=== PATIENT | female | born 1965 | race Caucasian/White ===

== ENCOUNTER → 2017-09-13 08:18 | Outpatient (CLI) | payer OTHER, SELFPAY ==
--- NOTE | 2017-09-13 08:30 | CT_ITS ---
STUDY: CT CHEST WITH CONTRAST REASON FOR EXAM: Female, 52 years old. New diagnosis of ovarian carcinoma. Left abdominal pain. RADIATION DOSAGE (If Supplied By Facility): CTDIvol = ( 13.23 ) mGy, DLP = ( 529.28 ) mGycm TECHNIQUE: Transaxial imaging was performed following intravenous administration of 100 ml of Isovue 300 contrast material. Multiplanar coronal and sagittal images were reformatted. Individualized dose optimization techniques were used for this CT. COMPARISON: None. FINDINGS: Small bilateral axillary lymph nodes. Mild degree of increased markings with areas of confluence in the anterior aspect of the right upper lobe. Reticular nodular densities are seen in the posterior aspect of the right upper lobe. There is a 7.6 mm x 8 mm well-defined nodule in the peripheral aspect of the right upper lobe as seen on image #73. Small right pleural effusion with bibasilar atelectasis. Sternal cerclage wires and vascular clips are present from a prior sternotomy and coronary artery bypass graft procedure (CABG). Prior aortic valve replacement. Coronary artery calcification. Enlarged subcarinal lymph nodes. Small bilateral hilar lymph nodes more prominent on the right side. The largest node measures 1.4 cm. Normal hilar regions. Normal enhanced pulmonary arteries. There is atherosclerotic calcification of the aortic arch . There are multi-level degenerative changes of the thoracic spine. There is no demonstrated abnormality of the visualized upper abdomen. CT/Chest WITH Contrast IMPRESSION: Small right pleural effusion with bibasilar atelectasis. 7.6 mm x 8 mm noncalcified nodule in the peripheral aspect of the right upper lobe. Reticular nodular infiltrate in the right upper lobe. Enlargement of both right and left hilar lymph nodes more prominent on the right side as well as subcarinal lymphadenopathy. Electronically Signed: Sesar Arcos MD at 13:42 EST Tel [phone], Service support ,
--- NOTE | 2017-09-13 08:30 | CT_ITS ---
STUDY: CT ABDOMEN AND PELVIS WITH CONTRAST REASON FOR EXAM: Female, 52 years old. Newly diagnosed ovarian cancer. Left abdominal pain for several months. Patient on several toe. RADIATION DOSAGE (If Supplied By Facility): CTDIvol = ( 13.23 ) mGy, DLP = ( 529.28 ) mGycm TECHNIQUE: Transaxial images were obtained from the dome of the diaphragm to the symphysis pubis without oral contrast. 100 ml of Isovue 300 contrast was administered. Sagittal and coronal images were reconstructed. Individualized dose optimization techniques were used for this CT. COMPARISON: None. FINDINGS: Lung bases are clear. There is a small right pleural effusion. Heart is normal size. There is evidence of median sternotomy. There is a Satya's lobe of the liver. The liver is otherwise normal in density and configuration. There is a 3 mL mm hypodensity in the posterior mid liver thought to represent a small cyst Normal gallbladder and extrahepatic biliary system. Normal spleen. Normal pancreas. A normal right adrenal gland. There is a heterogenous slightly enhancing mass in the left adrenal gland measuring 1.7 x 1.7 x 1.9 cm. Normal right kidney. Normal left kidney. Normal visualized stomach. Normal small intestine. Normal colon. The appendix is visualized and appears normal. There is diffuse atherosclerotic calcification of the abdominal aorta, without a demonstrated aneurysm. Normal inferior vena cava. There is extensive retroperitoneal and retrocrural lymphadenopathy. There are multiple retrocrural lymph nodes. The largest measures 1.4 x 1.3 x 2 cm. There is a large retroperitoneal lymph nodes, some appear necrotic. These extend outward along the celiac access into the portal hilum. There is a large portal caval nodes retrocaval lymphadenopathy and periaortic lymphadenopathy. There is a large necrotic node posterior to the pancreatic head measuring 3.6 x 2.1 x 4.1 cm in size. There is a larger necrotic mass posterior to this node which extends into the aorto caval space measuring 5.9 x 3.1 x 4.4 cm in size. Lymphadenopathy extends downwards along the retroperitoneum into the pelvis. There is a 2.3 x 2.1 x 2.1 cm partially necrotic lymph node between the left common iliac vessels and the left psoas muscle. This is best seen on image 66 of series 3. Normal urinary bladder. There is mild thickening of the vaginal vault with enhancement along the region of cough. There appears to be small bowel loops adjacent to the cough which may be adhesed. There is diffuse stranding of the pelvic soft tissues with thickening of the presacral soft tissues. There is no visualized pelvic lymphadenopathy. There are surgical clips along the left pelvic sidewall. No free air or free fluid is seen within the peritoneal cavity. The midline subumbilical surgical scar. The abdominal wall is otherwise unremarkable. There are mild degenerative changes of the lumbar spine. Normal osseous structures. CT/Abdomen/Pelvis WITH Contrast IMPRESSION: 1. Status post hysterectomy. There is questionable enhancement of the vaginal cuff with adjacent small bowel loops. Question adhesion or recurrence. 2. Diffuse stranding of the soft tissues of the pelvis. This may be secondary to radiation therapy. Correlation with surgical history is required. 3. Diffuse retroperitoneal and retrocrural lymphadenopathy as described above. 4. Hypodensity in the liver. This most likely represents a small cyst although a low-attenuation metastasis cannot be ruled out in light of the clinical history. 5. Small right pleural effusion. Electronically Signed: Josesito Sales DO at 10:12 EST Tel [phone], Service support ,
== END ==
PROVIDERS: Visit Provider Internal Medicine Hematology & Oncology
DX: C56.9 Malignant neoplasm of unspecified ovary (principal)
CPT/HCPCS: 71260; 74177; Q9967

== ENCOUNTER 2017-09-19 07:54 | Day surgery (SDC) | payer OTHER, SELFPAY ==
[2017-09-19] VITALS (8 sets, daily range): BP systolic 84–104; BP diastolic 51–64; PULSE 68–86; RESP 16; TEMP 36.6–36.8; O2SAT 94–100; BMI 20.9
[2017-09-19 09:09] LABS: International Normalized Ratio 1.3; Prothrombin Time (Protime)PT. 15.8 SECONDS (11.7-14.9)
[2017-09-19 09:10] LABS: Partial Thromboplast Time 45.8 Seconds (24.1-36.2)
[2017-09-19 09:12] LABS: Absolute Lymphocyte Count 0.88 X10^3/ul (0.83-4.51); Absolute Neutrophil Count 4.4 X10^3/uL (2.0-7.7); Basophil# 0.06 X10^3/uL; Basophil% 0.9 % (0-1); Eosinophil# 0.38 X10^3/uL; Eosinophils% 5.9 % (0-5); Hematocrit 28.4 % (37-47); Hemoglobin 8.5 g/dl (12.0-15.0); Lymphocyte # 0.88 X10^3/ul (4.0); Lymphocyte % 13.7 % (19-41); Mean Corp Hgb Conc 29.9 g/gl (32-36); Mean Corpuscular Hgb 22.5 pg (27.0-32.0); Mean Corpuscular Volume 75.1 fL (81-99); Mean Platelet Vol. 8.6 fl (6.2-12.0); Monocyte# 0.65 X10^3/uL; Monocyte% 10.1 % (0-10); Neutrophil # 4.42 X10^3/uL (2.7-7.7); Neutrophil % 68.8 % (47-70); POSITIVE COUNT NO; POSITIVE DIFFERENTIAL NO; POSITIVE MORPHOLOGY NO; Platelet Count 386 K/mm3 (150-450); RBC Distribution Width CV 15.2 % (11.6-14.6); RBC Distribution Width SD 41.3 fl (35.1-43.9); Red Blood Count 3.78 M/mm3 (4.2-5.4); White Blood Count 6.4 K/mm3 (4.4-11.0)
[2017-09-19] MEDS: Cefazolin 2 GM in 0.9% Normal Saline 100 ML IV (09:35)
[2017-09-19] MEDS: Bupivacaine Mpf 0.5% 30 ML VIAL (09:53)
--- NOTE | 2017-09-19 10:25 | PCM.OPRPT ---
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 Insertion of left IJ Port-A-Cath. 2. Use of ultrasound. 3. Use of fluoroscopy Type of Anesthesia:: MAC Anesthesiologist: Derek Marcelo Special Medications: Ancef 2 g IV ?1 Specimen's removed: none Estimated Blood Loss (mL): <10 cc Fluids Replaced: 750 cc Description of Procedure: After informed consent was given, the patient was brought to the operating room and placed in the supine position. Appropriate time out protocol was followed. He was then given IV conscious sedation for anesthesia. The patient's left upper chest and neck were then prepped with a surgical skin preparation and sterile surgical drapes were placed. After proper landmarks were ascertained, the skin at the upper left chest area was then infiltrated with 1:1 mixture of 1% lidocaine with epinephrine and 0.5% maricaine. A needle trocar was then inserted into the left internal jugular vein with ultrasound guidance-multiple vessels were viewed with u/s and the left IJ was chosen-- and there was good aspiration of venous blood. A wire was then threaded into the needle trocar and this was visualized under fluoroscopy to ensure that the wire was in the superior vena cava. Once this was done, then the needle trocar was removed. A small skin luana was made with an 11 blade knife at the wire entrance site. The dilator with the introducer sheath attached was then placed over the wire into the left internal jugular vein via the Seldinger technique and this was visualized under fluoroscopy. The dilator and sheath were in proper position as visualized by fluoroscopy. A subcutaneous pocket was then created caudad to the catheter insertion site. A transverse skin incision was made after the skin and subcutaneous tissues were infiltrated with local anesthetic. Blunt dissection was then used to create a space large enough for placement of the subcutaneous port. The catheter was then tunneled into the subcutaneous pocket. The wire and dilator were then removed. The catheter was then threaded into the introducer sheath and was positioned with its tip at the junction of the superior vena cava and the right atrium as visualized under fluoroscopy. The excess catheter was transected. The catheter was then attached to the subcutaneous port using manufacturers guidelines. The catheter was flushed with a heparin saline mixture prior to placement. Hemostasis was carefully controlled with electrocautery. The port was sutured to the subcutaneous fascia using 3-0 PDS suture at two sites. The port was then placed in the subcutaneous pocket and the sutures were ligated. The incision were reapproximated with interrupted subdermal 3-0 vicryl sutures. The skin was reapproximated with 3-0 nylon suture in a interrupted fashion. Steristrips were used for reinforcement of the skin closure at IJ insertion site and a sterile opsite dressings were applied. The patient tolerated the procedure well. Implants Used: [employer] isp M[employer]. 6Fr Lot [id number] Grafts/Implants Used: [employer] isp M.R.I. - Complications none
--- NOTE | 2017-09-19 10:29 | OP.PCM_ITS ---
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 Insertion of left IJ Port-A-Cath. 2. Use of ultrasound. 3. Use of fluoroscopy Type of Anesthesia:: MAC Anesthesiologist: Derek Marcelo Special Medications: Ancef 2 g IV ?1 Specimen's removed: none Estimated Blood Loss (mL): <10 cc Fluids Replaced: 750 cc Description of Procedure: After informed consent was given, the patient was brought to the operating room and placed in the supine position. Appropriate time out protocol was followed. He was then given IV conscious sedation for anesthesia. The patient 's left upper chest and neck were then prepped with a surgical skin preparation and sterile surgical drapes were placed. After proper landmarks were ascertained, the skin at the upper left chest area was then infiltrated with 1: 1 mixture of 1% lidocaine with epinephrine and 0.5% maricaine. A needle trocar was then inserted into the left internal jugular vein with ultrasound guidance-multiple vessels were viewed with u/s and the left IJ was chosen-- and there was good aspiration of venous blood. A wire was then threaded into the needle trocar and this was visualized under fluoroscopy to ensure that the wire was in the superior vena cava. Once this was done, then the needle trocar was removed. A small skin luana was made with an 11 blade knife at the wire entrance site. The dilator with the introducer sheath attached was then placed over the wire into the left internal jugular vein via the Seldinger technique and this was visualized under fluoroscopy. The dilator and sheath were in proper position as visualized by fluoroscopy. A subcutaneous pocket was then created caudad to the catheter insertion site. A transverse skin incision was made after the skin and subcutaneous tissues were infiltrated with local anesthetic. Blunt dissection was then used to create a space large enough for placement of the subcutaneous port. The catheter was then tunneled into the subcutaneous pocket. The wire and dilator were then removed. The catheter was then threaded into the introducer sheath and was positioned with its tip at the junction of the superior vena cava and the right atrium as visualized under fluoroscopy. The excess catheter was transected. The catheter was then attached to the subcutaneous port using manufacturers guidelines. The catheter was flushed with a heparin saline mixture prior to placement. Hemostasis was carefully controlled with electrocautery. The port was sutured to the subcutaneous fascia using 3-0 PDS suture at two sites. The port was then placed in the subcutaneous pocket and the sutures were ligated. The incision were reapproximated with interrupted subdermal 3-0 vicryl sutures. The skin was reapproximated with 3-0 nylon suture in a interrupted fashion. Steristrips were used for reinforcement of the skin closure at IJ insertion site and a sterile opsite dressings were applied. The patient tolerated the procedure well. Implants Used: [employer] isp M[employer]. 6Fr Lot [id number] Grafts/Implants Used: [employer] isp M.R.I. - Complications none
--- NOTE | 2017-09-19 10:30 | PCM.DC.POR ---
Discharge Diet: No Restrictions Discharge Activity: May not drive while taking narcotic pain medications. May shower in (days): 1 - Garcias port site dry for 5 days, uses Ziploc bag and tape off the edges Lifting Restrictions: No lifting greater than 15 pounds on the left for 1 week Call your doctor if your incision/area has: Continuous Slow Oozing, Sudden Increased Bleeding, Increased Pain/ Swelling, Increased Redness, Foul Smelling Discharge, Swelling at the incision site Call your doctor if you observe: Fever of 101 or Higher Remove Dressing in (days):: 2 Allergies/Adverse Reactions: Allergies sulfamethoxazole [From Bactrim] Adverse Reaction (Severe, Verified 09/18/17 13:53) Other JOHN[employer]S SYN[employer]ONE trimethoprim [From Bactrim] Adverse Reaction (Severe, Verified 09/18/17 13:53) Other [employer] Medications to take at Discharge Acetaminophen [Tylenol] 500 mg PO TID PRN 09/09/17 Metoprolol(XL)Succ [Toprol Xl (Beta Buzz)] 25 mg PO DAILY 09/09/17 Docusate Sodium [Dok] 100 mg PO DAILY PRN 09/10/17 Ondansetron HCl [Zofran] 4 mg PO UD PRN 09/10/17 Rivaroxaban [Xarelto] 15 mg PO BID 09/10/17 Rosuvastatin Calcium [Crestor] 40 mg PO DAILY 09/10/17 Oxycodone [Oxyir] 5 - 10 mg PO Q6H PRN PRN 2 Days #10 tablet 09/19/17 The following prescriptions were given: Oxycodone [Oxyir] 5 - 10 mg PO Q6H PRN PRN 2 Days #10 tablet PRN Reason: Pain Primary Care Physician: Care Physician,No Primary [Primary Care Provider] - Please Follow Up With: Jazmyne Dupont MD - after 5PM/weekend call [phone] with any concerns When: call office tomorrow for f/u in 10 days for suture removal Proposed Discharge Date: 09/19/17
--- NOTE | 2017-09-19 10:34 | DCINST_ITS ---
Discharge Diet: No Restrictions Discharge Activity: May not drive while taking narcotic pain medications. May shower in (days): 1 - Garcias port site dry for 5 days, uses Ziploc bag and tape off the edges Lifting Restrictions: No lifting greater than 15 pounds on the left for 1 week Call your doctor if your incision/area has: Continuous Slow Oozing, Sudden Increased Bleeding, Increased Pain/ Swelling, Increased Redness, Foul Smelling Discharge, Swelling at the incision site Call your doctor if you observe: Fever of 101 or Higher Remove Dressing in (days):: 2 Allergies/Adverse Reactions: Allergies sulfamethoxazole [From Bactrim] Adverse Reaction (Severe, Verified 09/18/17 13: 53) Other JOHN[employer] SYN[employer]ONE trimethoprim [From Bactrim] Adverse Reaction (Severe, Verified 09/18/17 13:53) Other [employer] Medications to take at Discharge Acetaminophen [Tylenol] 500 mg PO TID PRN 09/09/17 Metoprolol(XL)Succ [Toprol Xl (Beta Buzz)] 25 mg PO DAILY 09/09/17 Docusate Sodium [Dok] 100 mg PO DAILY PRN 09/10/17 Ondansetron HCl [Zofran] 4 mg PO UD PRN 09/10/17 Rivaroxaban [Xarelto] 15 mg PO BID 09/10/17 Rosuvastatin Calcium [Crestor] 40 mg PO DAILY 09/10/17 Oxycodone [Oxyir] 5 - 10 mg PO Q6H PRN PRN 2 Days #10 tablet 09/19/17 The following prescriptions were given: Oxycodone [Oxyir] 5 - 10 mg PO Q6H PRN PRN 2 Days #10 tablet PRN Reason: Pain Primary Care Physician: Care Physician,No Primary [Primary Care Provider] - Please Follow Up With: Jazmyne Dupont MD - after 5PM/weekend call [phone] with any concerns When: call office tomorrow for f/u in 10 days for suture removal Proposed Discharge Date: 09/19/17
--- NOTE | 2017-09-19 11:20 | RAD_ITS ---
STUDY: X-RAY CHEST REASON FOR EXAM: Female, 52 years old. Port placement verification. TECHNIQUE: Single frontal view of the chest. COMPARISON: None. FINDINGS: A left internal jugular catheter has been placed with the tip projected into the mid-SVC. No complications are noted. The lungs are mildly hyperexpanded. There is blunting of the right costophrenic angle representing scarring or a small effusion. There is borderline cardiomegaly with sternotomy wires and changes of valve replacement. Normal mediastinum and vannessa. Normal visualized pulmonary arteries. Normal visualized aortic arch and descending thoracic aorta. Normal visualized thoracic spine. Normal visualized ribs, clavicles, and shoulders. There is no demonstrated abnormality of the visualized soft tissue structures of the upper abdomen. RAD/CXR for Line Placement IMPRESSION: Borderline cardiomegaly with mild hyperexpansion. Left subclavian port placed as described. No complications noted. Electronically Signed: Luis Mancini MD at 11:02 EST , Service support ,
== END 2017-09-19 12:19 | disposition home or self-care (01) ==
LOC: SDC 07:55 → AC 07:56
PROVIDERS: Anesthesiology; Visit Provider Surgery
PROC: (CPT 36561; principal; 2017-09-19 09:15)
DX: Z45.2 Encounter for adjustment and management of vascular access device (principal); C56.1 Malignant neoplasm of right ovary; C78.6 Secondary malignant neoplasm of retroperitoneum and peritoneum; C77.9 Secondary and unspecified malignant neoplasm of lymph node, unspecified; D64.9 Anemia, unspecified; E78.00 Pure hypercholesterolemia, unspecified; L40.9 Psoriasis, unspecified; Z79.01 Long term (current) use of anticoagulants; Z79.899 Other long term (current) drug therapy; Z86.718 Personal history of other venous thrombosis and embolism; Z87.891 Personal history of nicotine dependence; Z95.2 Presence of prosthetic heart valve; Z90.710 Acquired absence of both cervix and uterus
CPT/HCPCS: 36561; 76937; 71045; 77001; 85025; 85610; 85730; J7120; C1788

== ENCOUNTER → 2017-10-04 08:57 | Outpatient (CLI) | payer OTHER, SELFPAY ==
--- NOTE | 2017-10-04 09:01 | RAD_ITS ---
STUDY: X-RAY - LUMBAR SPINE REASON FOR EXAM: Female, 52 years old. Bilateral hip pain. TECHNIQUE: AP and lateral view(s) of the lumbar spine were obtained. COMPARISON: None FINDINGS: There is straightening of the normal lumbar lordosis. There is no substantial scoliosis. There is a normal alignment of the vertebrae. Mild anterior spondylosis at the L1-L2 level. Normal disc space heights. There is atherosclerotic calcification of the abdominal aorta without a demonstrated aneurysm. Moderate amount of fecal material is seen in the colon. Surgical clips are seen in the left hemipelvis. RAD/Lumbar Spine 2 or 3 Views IMPRESSION: Straightening of the normal lumbar lordosis. Electronically Signed: Sesar Arcos MD at 14:16 EST Tel [phone], Service support ,
--- NOTE | 2017-10-04 09:09 | RAD_ITS ---
STUDY: X-RAY - SACRUM/COCCYX REASON FOR EXAM: Female, 52 years old. Bilateral hip pain. History of ovarian cancer. TECHNIQUE: 3 view(s) of the sacrum and coccyx were obtained. COMPARISON: None. FINDINGS: Normal bilateral sacroiliac joints. Normal visualized sacral ala and fused sacral bodies. Normal sacrococcygeal junction with a normal angulation. Normal coccygeal segments. Surgical clips are seen overlying the left hemithorax. RAD/Sacrum-Coccyx min 2 Views IMPRESSION: Normal x-rays of the sacrum and coccyx. Electronically Signed: Sesar Arcos MD at 14:10 EST Tel [phone], Service support ,
== END ==
PROVIDERS: Visit Provider Anesthesiology Pain Medicine
DX: M54.9 Dorsalgia, unspecified (principal)
CPT/HCPCS: 72100; 72220

== ENCOUNTER → 2018-01-31 08:31 | Outpatient (CLI) | payer OTHER, SELFPAY ==
--- NOTE | 2018-01-31 08:32 | ECHOD_ITS ---
Reason For Study: Valve replacement Procedure This was a 2D Doppler, Color Flow transthoracic echocardiogram. The exam was of adequate technical quality. Exam performed in department. Left Ventricle Normal LV size. Left ventricular systolic function is normal. The estimated ejection fraction is 60 %. Post operative septal motion. No regional wall motion abnormalities noted. Right Ventricle Normal RV size. Normal systolic function. Atria The left atrium is mildly enlarged. Normal right atrium. No doppler evidence for ASD. Mitral Valve Stable appearing bioprosthetic mitral valve apparatus. Trivial transvalvular insufficiency of the mitral valve. Tricuspid Valve Normal tricuspid valve. Moderate (2+) tricuspid valve insufficiency. Right ventricular systolic pressure estimated to be 30 mmHg. Aortic Valve Stable appearing bioprosthetic aortic valve apparatus. Pulmonic Valve The pulmonic valve is not well visualized. Trivial pulmonic valve insufficiency. Great Vessels The aortic root is not well visualized. Pericardium/Pleural No pericardial effusion. MMode/2D Measurements & Calculations LVIDd: 4.3 cm IVSd: 1.2 cm LVOT diam: 1.6 cm LVIDs: 2.3 cm LVPWd: 1.2 cm LVOT area: 1.9 cm2 RVDd: 3.6 cm FS: 47.1 % LA dimension: 4.1 cm LAV(MOD-sp4): 58.4 ml LA A4 area: 19.3 cm2 RA A4 area: 15.1 cm2 Time Measurements MV dec time: 0.27 sec Doppler Measurements & Calculations MV E max norm: 198.8 cm/sec Lat Peak E' Norm: 9.6 cm/sec Med Peak E' Norm: 8.9 cm/sec MV A max norm: 175.7 cm/sec E/E' lat: 20.7 E/E' med: 22.3 MV E/A: 1.1 MV V2 max: 228.2 cm/sec MV P1/2t max norm: 227.3 cm/sec Ao V2 max: 243.6 cm/sec MV max P.8 mmHg MV P1/2t: 96.0 msec Ao max P.7 mmHg MV V2 mean: 144.2 cm/sec MV dec slope: 693.4 cm/sec2 Ao V2 mean: 144.9 cm/sec MV mean P.7 mmHg MVA(P1/2t): 2.3 cm2 Ao mean P.5 mmHg MV V2 VTI: 55.1 cm Ao V2 VTI: 43.6 cm MVA(VTI): 1.1 cm2 TYSON(I,D): 1.3 cm2 TYSON(V,D): 1.2 cm2 LV V1 max: 155.6 cm/sec SV(LVOT): 58.8 ml PA V2 max: 87.6 cm/sec LV V1 max P.7 mmHg LV V1 mean P.1 mmHg LV V1 mean: 105.4 cm/sec LV V1 VTI: 31.1 cm TR max norm: 257.6 cm/sec TR max P.5 mmHg Interpretation Summary Left ventricular systolic function is normal. The estimated ejection fraction is 60 %. Post operative septal motion. The left atrium is mildly enlarged. Stable appearing bioprosthetic mitral valve apparatus. Trivial transvalvular insufficiency of the mitral valve. Moderate (2+) tricuspid valve insufficiency. Stable appearing bioprosthetic aortic valve apparatus. Trivial pulmonic valve insufficiency. Right ventricular systolic pressure estimated to be 30 mmHg. Diastology considered indeterminate. Ordering Physician: Wilber Pool Referring Physician: Wilber Pool Performed By: Tanner Mayen RCS
== END ==
PROVIDERS: Visit Provider Internal Medicine Cardiovascular Disease
DX: Z95.4 Presence of other heart-valve replacement (principal)
CPT/HCPCS: 93306

== ENCOUNTER → 2018-03-24 07:16 | Outpatient (CLI) | payer OTHER, SELFPAY ==
--- NOTE | 2018-03-24 07:23 | CT_ITS ---
STUDY: CT CHEST WITH CONTRAST REASON FOR EXAM: Female, 52 years old. Ovarian cancer RADIATION DOSAGE (If Supplied By Facility): CTDIvol = ( 9.53 ) mGy, DLP = ( 1163.46 ) mGycm TECHNIQUE: Transaxial imaging was performed following intravenous administration of 100 ml of Isovue 300 contrast material. Multiplanar coronal and sagittal images were reformatted. Individualized dose optimization techniques were used for this CT. COMPARISON: September 13, 2017. FINDINGS: There is port on the left extending to the superior vena cava. No dominant mass. Granulomatous calcifications of the lungs. There is no demonstrated pleural abnormality. Sternal cerclage wires are present from a prior sternotomy. There is aortic valve prosthesis. There are mitral annular calcifications. There is stable 1.7 cm right paratracheal lymph node. There are calcified right hilar lymph nodes. Normal enhanced pulmonary arteries. There is atherosclerotic calcification of the aortic arch with tortuosity and elongation of the aortic arch and descending thoracic aorta. There are multi-level degenerative changes of the thoracic spine. There is no demonstrated abnormality of the visualized upper abdomen. CT/Chest WITH Contrast IMPRESSION: No dominant pulmonary mass. Stable mediastinal lymph nodes. Stable left adrenal mass. Granulomatous calcifications. Electronically Signed: Dennis Spencer MD at 17:26 EDT , Service support ,
--- NOTE | 2018-03-24 07:23 | CT_ITS ---
STUDY: CT ABDOMEN AND PELVIS WITH CONTRAST REASON FOR EXAM: Female, 52 years old. Ovarian cancer. RADIATION DOSAGE (If Supplied By Facility): CTDIvol = ( 9.53 ) mGy, DLP = ( 1163.46 ) mGycm TECHNIQUE: Transaxial images were obtained from the dome of the diaphragm to the symphysis pubis without oral contrast. 100 ml of Isovue 300 contrast was administered. Sagittal and coronal images were reconstructed. Individualized dose optimization techniques were used for this CT. COMPARISON: September 13, 2017. FINDINGS: The visualized lung bases are unremarkable. There are mitral annular calcifications. There are sternotomy wires. Normal liver. Normal gallbladder and extrahepatic biliary system. Normal spleen. Normal pancreas. There is stable 1.6 cm low-density mass of the left adrenal gland. Normal right kidney. Normal left kidney. Normal visualized stomach. Mildly dilated pelvic loops of small intestine. Normal colon. The appendix is visualized and appears normal. There is diffuse atherosclerotic calcification of the abdominal aorta, without a demonstrated aneurysm. Normal inferior vena cava. There is improvement in retroperitoneal lymphadenopathy including a 2.2 cm interaortocaval node. Normal urinary bladder. There is absence of the uterus consistent with a prior hysterectomy. There is a 6.6 x 6.5 cm complex thick walled low density mass at the vaginal cuff. There are adjacent 4.5 x 2.2 cm fluid density regions. There is moderate free fluid in the abdomen and pelvis. Normal abdominal wall. Normal osseous structures. CT/Abdomen/Pelvis W IV Cont ONLY IMPRESSION: There is complex low density mass in the pelvis suggesting recurrent necrotic neoplasm. Abscess with fistula would be considered less likely. Improvement of retroperitoneal lymphadenopathy. Free fluid in the pelvis. Electronically Signed: Dennis Spencer MD at 17:14 EDT , Service support ,
== END ==
PROVIDERS: Visit Provider Internal Medicine Hematology & Oncology
DX: R97.1 Elevated cancer antigen 125 [CA 125] (principal); C78.6 Secondary malignant neoplasm of retroperitoneum and peritoneum; Z79.899 Other long term (current) drug therapy
CPT/HCPCS: 71260; 74177; Q9967; A4216

== ENCOUNTER 2018-03-28 09:18 | Emergency (ER) | payer OTHER, SELFPAY ==
[2018-03-28] VITALS (7 sets, daily range): BP systolic 82–108; BP diastolic 46–55; PULSE 85–113; RESP 14–22; TEMP 37.9–38; O2SAT 94–98; BMI 22.3
--- NOTE | 2018-03-28 09:37 | RAD_ITS ---
STUDY: X-RAY CHEST REASON FOR EXAM: Female, 52 years old. Neutropenic fever with ovarian cancer. TECHNIQUE: Portable chest COMPARISON: CT chest 03/24/2018 FINDINGS: Left Mediport catheter with tip in distal SVC, stable. Median sternotomy with bioprosthetic aortic valve. The lungs are clear and expanded. Normal cardiomediastinal silhouette, vannessa and pleural margins. No acute osseous or upper abdominal process. RAD/Chest 1 View (Portable) IMPRESSION: No acute cardiopulmonary process. Electronically Signed: Bennett Sterling, at 10:57 EDT Tel , Service support ,
[2018-03-28] MEDS: Acetaminophen 325 MG Tablet 650 MG PO (10:01)
[2018-03-28 10:02] LABS: Absolute Lymphocyte Count 0.47 X10^3/ul (0.83-4.51); Absolute Neutrophil Count 7.8 X10^3/uL (2.0-7.7); Basophil# 0.01 X10^3/uL; Basophil% 0.1 % (0-1); Differential Indicated SCAN CRITERIA MET; Hematocrit 26.2 % (37-47); Hemoglobin 8.9 g/dl (12.0-15.0); Lymphocyte # 0.47 X10^3/ul (4.0); Lymphocyte % 5.4 % (19-41); Mean Corpuscular Hgb 34.2 pg (27.0-32.0); Mean Corpuscular Volume 100.8 fL (81-99); Mean Platelet Vol. 10.5 fl (6.2-12.0); Monocyte% 3.4 % (0-10); Neutrophil # 7.83 X10^3/uL (2.7-7.7); Neutrophil % 89.8 % (47-70); POSITIVE COUNT YES; POSITIVE DIFFERENTIAL YES; POSITIVE MORPHOLOGY NO; Platelet Count 47 K/mm3 (150-450); RBC Distribution Width CV 14.7 % (11.6-14.6); RBC Distribution Width SD 52.4 fl (35.1-43.9); White Blood Count 8.7 K/mm3 (4.4-11.0)
[2018-03-28] MEDS: 0.9% Normal Saline 1,000 ML IV.SOLN. 2000 ML IV (10:02)
[2018-03-28 10:05] LABS: International Normalized Ratio 2.9; Prothrombin Time (Protime)PT. 30.4 SECONDS (11.7-14.9)
[2018-03-28 10:07] LABS: ALB/GLOB Ratio 0.9 RATIO (0.9-2.4); AST(SGOT) 22 U/L (15-37); Alanine Aminotransfer ALT/SGPT 27 U/L (13-56); Albumin, Serum 3.1 g/dL (3.2-5.0); Alkaline Phosphatase 127 U/L (45-117); Anion Gap 11 (5-15); BUN 14 mg/dL (7-18); BUN/Creat Ratio 15.9 RATIO (10-20); Calcium,Total 8.5 mg/dL (8.5-10.1); Chloride 98 mmol/L (98-107); Creatinine, Serum 0.88 mg/dL (0.55-1.02); EST Glomerular Filtration Rate 72 mL/min (>60); Est Glom Filt Rate - Afr Amer 87 mL/min (>60); Estimated Creatinine Clearance 70.01 ml/min; Globulin 3.6 g/dL (2.2-4.2); Glucose 101 mg/dL (74-106); Partial Thromboplast Time 73.5 Seconds (24.1-36.2); Potassium 3.7 mmol/L (3.5-5.1); Protein, Total 6.7 g/dL (6.4-8.2); Sodium Level 133 mmol/L (136-145)
--- NOTE | 2018-03-28 10:20 | ED.DCSUM_ITS ---
- ER Visit Summary Date of Service: 03/28/18 Chief Complaint: Fever History of Present Illness: The patient is a 52 F with suspected neutropenic fever. Patient has stage III ovarian cancer which was diagnosed at the end of 2016. She had a subsequent hysterectomy and has been undergoing chemotherapy. Her last dose was about a week and a half ago. She presents today for positive blood cultures, fever, and diarrhea. She had diarrhea for the past 5 days. Patient also has a mass at her vaginal cuff on CT that was done 4 days ago. This is suspicious for necrotic neoplasm. Abscess with fistula is thought to be less likely. Patient is full code. Physical Examination: Temperature 100.2 and heart rate 113. Blood pressure 82/ 48. Patient is alert and oriented. Sitting upright and appears comfortable. Skin unremarkable. No lesions. Heart regular. Lungs clear. Abdomen soft and nontender. No focal or lateralizing neurologic abnormalities grossly. Test Results: EKG showed sinus rhythm at a rate of 99. Septic labs and cultures pending. Chest x-ray pending. Emergency Department Course and Treatment: Patient seen immediately on arrival. She was treated with fluid bolus and placed on a monitor. She was also treated with Tylenol. Broad-spectrum antibiotics were started for neutropenic fever including imapenem, vancomycin, and tobramycin. White count 8.7. Hemoglobin stable at 8.9. Platelets 47. Sodium 133. Alk phos 127, INR 2.9, PTT 73.5. Urinalysis unremarkable. Lactate normal. Cultures pending. X-ray showed no acute findings. Patient's blood pressure had remained around 100 systolic. She has only received half of a liter. We will continue with fluid hydration. She is mentating well, and her heart rate has improved to the 90s. Skin appears unremarkable, and I do not believe that she is in shock. Patient was discussed with Dr. Harrison. There is some concern that her pelvic mass may be the source of her sepsis and bacteremia. It may also be from diarrhea. He feels that she does need evaluation by [facility]. Her surgeon is Dr. Broussard at [place]. I did contact the transfer center. Treatment Plan: As above Disposition: Transfer to [place] Impression: 1. Severe sepsis 2. Diarrheal illness 3. Pelvic mass 4. Ovarian cancer This note was generated with [employer] software. It may contain incorrect words, spelling, and punctuation that were not noted in review of the chart prior to signing ED Disposition - Plan for ED Patient: Chief Complaint: Abn Labs Referrals: Frankie Tyson MD [Primary Care Provider] -
[2018-03-28 10:31] LABS: Bacteria 0 SEEN /hpf (None Seen); Color, Urine Yellow (Yellow); Glucose, Dipstick Normal (Normal); Ketone-Dipstick 5 mg/dl (Negative); Leukocyte Esterase-Dipstick 25 /ul (Negative); Mucous, Urine 0 SEEN /hpf (<or=2+); Nitrite-Dipstick Negative (Negative); Occult Blood-Urine 250 /ul (Negative); Protein-Dipstick 100 mg/dl (Negative); Squamous Epithelial Cells - UA 0 SEEN /hpf (5-10); Urine Bilirubin Dipstick Negative (Negative); Urine Clarity Clear (Clear); Urine Urobilinogen Normal (Normal); White Blood Cells 0 SEEN /hpf (0-5)
[2018-03-28 10:31] LABS: Lactic Acid 0.8 mmol/L (0.4-2.0)
[2018-03-28 10:42] LABS: Red Blood Cells-Urine 5-10 SEEN /hpf (0-5); Yeast-Urine 1+ /hpf (None Seen)
[2018-03-28] MEDS: DiphenhydrAMINE 50 MG/ML Syringe 12.5 MG IV (12:19)
--- NOTE | 2018-03-28 12:54 | ED.RN ---
report called to steve tenorio daisy.
--- NOTE | 2018-03-28 21:54 | ED.RN ---
CALLED BLOOD CULTURE RESULT TO SOFIA CRAWFORD IN ICU CARING FOR PT AT [place].
--- NOTE | 2018-03-28 23:39 | ED.RN ---
LAB CALLED AGAIN WITH BLOOD CULTURE RESULT. CALLED RN CARING FOR PT AT [facility], ERICK FLYNN, AND GAVE RESULTS TO.
[2018-03-31 13:25] LABS: Pathologist Review Reviewed
== END 2018-03-28 14:33 | disposition short-term general hospital (02) ==
PROVIDERS: Emergency Provider Emergency Medicine
DX: A41.9 Sepsis, unspecified organism (principal); R65.20 Severe sepsis without septic shock; D70.9 Neutropenia, unspecified; R50.81 Fever presenting with conditions classified elsewhere; R19.7 Diarrhea, unspecified; C56.9 Malignant neoplasm of unspecified ovary; I50.9 Heart failure, unspecified; Z90.710 Acquired absence of both cervix and uterus; R19.00 Intra-abdominal and pelvic swelling, mass and lump, unspecified site; Z86.718 Personal history of other venous thrombosis and embolism; Z86.2 Personal history of diseases of the blood and blood-forming organs and certain disorders involving the immune mechanism; Z87.891 Personal history of nicotine dependence; Z79.01 Long term (current) use of anticoagulants; Z79.899 Other long term (current) drug therapy
CPT/HCPCS: 36591; 71045; 80053; 81001; 83605; 85025; 85610; 85730; 87040; 87077; 87086; 87088; 87186; 93005; 96365; 96366; 96367; 96375; 99284; J2185; J7030; J7050; A4216

== ENCOUNTER 2018-04-16 09:44 | Outpatient (RCR) | payer OTHER, SELFPAY ==
[2018-04-15 11:23] LABS: Absolute Neutrophil Count 8.9 X10^3/uL (2.0-7.7); Basophil# 0.09 X10^3/uL; Basophil% 0.8 % (0-1); Eosinophils% 1.7 % (0-5); Hematocrit 35.2 % (37-47); Hemoglobin 11.2 g/dl (12.0-15.0); Lymphocyte % 14.7 % (19-41); Mean Corp Hgb Conc 31.8 g/gl (32-36); Mean Corpuscular Hgb 31.5 pg (27.0-32.0); Mean Corpuscular Volume 98.9 fL (81-99); Monocyte# 0.58 X10^3/uL; Neutrophil # 8.94 X10^3/uL (2.7-7.7); Neutrophil % 77.6 % (47-70); POSITIVE COUNT NO; POSITIVE DIFFERENTIAL NO; POSITIVE MORPHOLOGY NO; Platelet Count 550 K/mm3 (150-450); RBC Distribution Width CV 15.5 % (11.6-14.6); Red Blood Count 3.56 M/mm3 (4.2-5.4); White Blood Count 11.5 K/mm3 (4.4-11.0)
[2018-04-15 11:27] LABS: Anion Gap 12 (5-15); BUN 10 mg/dL (7-18); Calcium,Total 8.8 mg/dL (8.5-10.1); Chloride 102 mmol/L (98-107); EST Glomerular Filtration Rate 69 mL/min (>60); Est Glom Filt Rate - Afr Amer 84 mL/min (>60); Glucose 104 mg/dL (74-106); Potassium 3.3 mmol/L (3.5-5.1); Sodium Level 139 mmol/L (136-145)
[2018-04-16 10:16] LABS: Vancomycin, Trough Level 12.8 ug/mL (5.0-15.0)
== END 2018-04-18 23:59 ==
LOC: HHLAB 09:44
DX: K63.0 Abscess of intestine (principal); A41.81 Sepsis due to Enterococcus
CPT/HCPCS: 80048; 80202; 85025

== ENCOUNTER 2018-04-22 12:39 | Outpatient (RCR) | payer OTHER, SELFPAY ==
[2018-04-17 09:57] VITALS: BMI 22.3
[2018-04-22 13:33] LABS: Absolute Lymphocyte Count 0.98 X10^3/ul (0.83-4.51); Absolute Neutrophil Count 8.3 X10^3/uL (2.0-7.7); Basophil# 0.18 X10^3/uL; Basophil% 1.7 % (0-1); Eosinophil# 0.66 X10^3/uL; Eosinophils% 6.1 % (0-5); Hematocrit 37.1 % (37-47); Hemoglobin 11.8 g/dl (12.0-15.0); Lymphocyte # 0.98 X10^3/ul (4.0); Lymphocyte % 9.1 % (19-41); Mean Corp Hgb Conc 31.8 g/gl (32-36); Mean Corpuscular Hgb 31.6 pg (27.0-32.0); Mean Corpuscular Volume 99.2 fL (81-99); Mean Platelet Vol. 10.2 fl (6.2-12.0); Monocyte# 0.61 X10^3/uL; Monocyte% 5.7 % (0-10); Neutrophil # 8.28 X10^3/uL (2.7-7.7); Neutrophil % 76.8 % (47-70); Platelet Count 244 K/mm3 (150-450); RBC Distribution Width CV 14.9 % (11.6-14.6); RBC Distribution Width SD 52.5 fl (35.1-43.9); Red Blood Count 3.74 M/mm3 (4.2-5.4); White Blood Count 10.8 K/mm3 (4.4-11.0)
[2018-04-22 13:36] LABS: Anion Gap 11 (5-15); BUN 8 mg/dL (7-18); BUN/Creat Ratio 9.2 RATIO (10-20); Calcium,Total 8.8 mg/dL (8.5-10.1); Chloride 101 mmol/L (98-107); Creatinine, Serum 0.87 mg/dL (0.55-1.02); EST Glomerular Filtration Rate 73 mL/min (>60); Est Glom Filt Rate - Afr Amer 88 mL/min (>60); Glucose 122 mg/dL (74-106); Potassium 3.8 mmol/L (3.5-5.1); Sodium Level 139 mmol/L (136-145)
[2018-04-22 13:38] LABS: POSITIVE COUNT NO; POSITIVE DIFFERENTIAL NO; POSITIVE MORPHOLOGY NO
== END 2018-05-18 23:59 ==
LOC: HHLAB 12:39
DX: K63.0 Abscess of intestine (principal); A41.81 Sepsis due to Enterococcus
CPT/HCPCS: 80048; 85025

== ENCOUNTER → 2018-08-11 07:42 | Outpatient (CLI) | payer OTHER, SELFPAY ==
[2018-04-17 09:57] VITALS: BMI 22.3
[2018-08-06 09:14] VITALS: BMI 22.8
--- NOTE | 2018-08-11 07:43 | CT_ITS ---
STUDY: CT ABDOMEN AND PELVIS WITH CONTRAST REASON FOR EXAM: Female, 52 years old. RADIATION DOSAGE (If Supplied By Facility): CTDIvol = ( 11.10 ) mGy, DLP = ( 1181.56 ) mGycm TECHNIQUE: Transaxial images were obtained from the dome of the diaphragm to the symphysis pubis without oral contrast. 100CC ml of Isovue 300 contrast was administered. Sagittal and coronal images were reconstructed. Individualized dose optimization techniques were used for this CT. COMPARISON: March 31, 2018 FINDINGS: The visualized lung bases are unremarkable. The visualized portions of the heart are within normal limits. The liver and spleen are normal in size and attenuation no focal lesion or abnormal enhancement. There is minimal free fluid around the liver. Normal gallbladder and extrahepatic biliary system. Normal pancreas. There is retroperitoneal lymphadenopathy this is more than seen in the previous examination. Normal bilateral adrenal glands. Normal right kidney. Normal left kidney. Normal visualized stomach. Normal small intestine. Normal colon. The appendix is visualized and appears normal. Normal abdominal aorta. Normal inferior vena cava. There is 5.1 x 4.9 x 5.3 cm necrotic mass in transverse, AP and craniocaudad diameter respectively within the pelvis with possible invasion of the posterior wall of the urinary bladder There is circumferential thickening of the rectum. The urinary bladder is not distended. Normal abdominal wall. Normal osseous structures. CT/Abdomen/Pelvis W IV Cont ONLY IMPRESSION: Interval development of retroperitoneal lymphadenopathy. . Necrotic mass in the pelvis with the measurements described above.. Electronically Signed: Devorah Greer, at 12:44 EST Tel , Service support ,
--- NOTE | 2018-08-11 07:43 | ECHODONC_ITS ---
Reason For Study: Pre-chemotherapy Procedure This was a 2D Doppler, Color Flow transthoracic echocardiogram. Myocardial strain analysis was performed in this exam to aid in the assessment of cardiac function. The exam was of adequate technical quality. Exam performed in department. Left Ventricle Normal LV size. Left ventricular systolic function is normal. The estimated ejection fraction is 65 %. The global longitudinal strain = -20 % (normal). There is evidence of diastolic dysfunction. No regional wall motion abnormalities noted. Right Ventricle Normal RV size. Normal systolic function. Atria The left atrium is mildly enlarged. Normal right atrium. No doppler evidence for ASD. Mitral Valve Stable appearing bioprosthetic mitral valve apparatus. Trivial transvalvular insufficiency of the mitral valve. Tricuspid Valve Normal tricuspid valve. Mild to moderate (1-2+) tricuspid valve insufficiency. Right ventricular systolic pressure estimated to be 29 mmHg. Aortic Valve Stable appearing bioprosthetic aortic valve apparatus. Pulmonic Valve The pulmonic valve is not well visualized. Trivial pulmonic valve insufficiency. Great Vessels Normal sized aortic root. Pericardium/Pleural No pericardial effusion. MMode/2D Measurements & Calculations LVIDd: 4.7 cm IVSd: 0.99 cm LVOT diam: 1.9 cm LVIDs: 2.7 cm LVPWd: 0.95 cm LVOT area: 2.7 cm2 RVDd: 3.3 cm FS: 42.1 % Ao root diam: 3.1 cm LAV(MOD-bp): 85.4 ml EDV(MOD-sp4): 68.3 ml LAV(MOD-bp) Indexed: 49.7 ml/m2 ESV(MOD-sp4): 22.0 ml LAV(MOD-sp2): 83.4 ml EF(MOD-sp4): 67.8 % LAV(MOD-sp4): 84.7 ml EDV(MOD-sp2): 65.6 ml SV(MOD-sp4): 46.3 ml SV(MOD-sp2): 34.7 ml EF(MOD-sp2): 52.9 % LA A4 area: 25.2 cm2 LA dimension(2D): 4.0 cm RA A4 area: 15.9 cm2 Doppler Measurements & Calculations MV E max norm: 190.6 cm/sec Lat Peak E' Norm: 5.9 cm/sec Med Peak E' Norm: 4.9 cm/sec MV A max norm: 154.4 cm/sec E/E' lat: 32.4 E/E' med: 38.8 MV E/A: 1.2 MV V2 max: 214.7 cm/sec MV P1/2t max norm: 204.9 cm/sec Ao V2 max: 210.2 cm/sec MV max P.4 mmHg MV P1/2t: 80.5 msec Ao max P.7 mmHg MV V2 mean: 143.0 cm/sec Ao V2 mean: 138.6 cm/sec MV mean P.9 mmHg MV dec slope: 745.1 cm/sec2 Ao mean P.7 mmHg MV V2 VTI: 47.8 cm MVA(P1/2t): 2.7 cm2 Ao V2 VTI: 43.1 cm MVA(VTI): 1.9 cm2 TYSON(I,D): 2.1 cm2 TYSON(V,D): 1.9 cm2 LV V1 max: 149.8 cm/sec SV(LVOT): 89.1 ml PA V2 max: 109.6 cm/sec LV V1 max P.0 mmHg LV V1 mean P.8 mmHg LV V1 mean: 103.3 cm/sec LV V1 VTI: 32.9 cm TR max norm: 256.0 cm/sec TR max P.3 mmHg Interpretation Summary Left ventricular systolic function is normal. The estimated ejection fraction is 65 %. The global longitudinal strain = -20 % (normal). The left atrium is mildly enlarged. Stable appearing bioprosthetic mitral valve apparatus. Trivial transvalvular insufficiency of the mitral valve. Mild to moderate (1-2+) tricuspid valve insufficiency. Stable appearing bioprosthetic aortic valve apparatus. Trivial pulmonic valve insufficiency. Right ventricular systolic pressure estimated to be 29 mmHg. There is evidence of diastolic dysfunction. Ordering Physician: Ming Harrison Referring Physician: Wilber Pool MD Performed By: Heather Anglin, VINEET
--- NOTE | 2018-08-11 07:43 | CT_ITS ---
STUDY: CT CHEST WITH CONTRAST REASON FOR EXAM: Female, 52 years old. RADIATION DOSAGE (If Supplied By Facility): CTDIvol = ( 11.10 ) mGy, DLP = ( 1181.56 ) mGycm TECHNIQUE: Transaxial imaging was performed following intravenous administration of 100CC ml of Isovue 300 contrast material. Individualized dose optimization techniques were used for this CT. COMPARISON: None. FINDINGS: The lungs are normal. There is no demonstrated pleural abnormality. Normal heart and pericardium. Normal mediastinum. Normal hilar regions. Normal enhanced pulmonary arteries including segmental and subsegmental branches without evidence of filling defects to suggest PE. Normal aorta arch and descending thoracic aorta. Normal osseous structures. There is no demonstrated abnormality of the visualized upper abdomen. CT/Chest WITH Contrast IMPRESSION: Normal enhanced CT Chest examination. Electronically Signed: Devorah Greer, at 12:56 EST Tel , Service support ,
== END ==
PROVIDERS: Referring Provider Internal Medicine Hematology & Oncology; Visit Provider Internal Medicine Hematology & Oncology
DX: Z01.818 Encounter for other preprocedural examination (principal); C56.9 Malignant neoplasm of unspecified ovary
CPT/HCPCS: 0399T; 71260; 74177; 93306; Q9967; A4216

== ENCOUNTER → 2018-10-27 13:07 | Outpatient (CLI) | payer OTHER, SELFPAY ==
[2018-04-17 09:57] VITALS: BMI 22.3
[2018-10-08 09:35] VITALS: BMI 23.7
--- NOTE | 2018-10-27 13:09 | CT_ITS ---
STUDY: CT CHEST WITH CONTRAST REASON FOR EXAM: Female, 53 years old. Restaging ovarian carcinoma. RADIATION DOSAGE (If Supplied By Facility): CTDIvol = ( 9.44 ) mGy, DLP = ( 281.81 ) mGycm TECHNIQUE: Transaxial imaging was performed following intravenous administration of Isovue 300 100 IV. Coronal and sagittal reconstructions were performed. Individualized dose optimization techniques were used for this CT. COMPARISON: 08/11/2018. FINDINGS: No suspicious pulmonary nodules or infiltrates. Subpleural calcification in the posterior aspect of the right lower lobe. Minimal scarring in the right posterior lung base is unchanged. No pleural fluid. Normal heart and pericardium. 1.1 cm lymph node in the right anterior carinal space is unchanged. Tiny lymph nodes adjacent the transverse aorta are unchanged. Small lymph node in the left hilum is unchanged. Normal right hilum. Normal enhanced pulmonary arteries. Calcifications of the aortic valve leaflets. No thoracic aortic aneurysm. Few calcifications in the thoracic aorta. 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 No acute osseous abnormality. 2 cm left adrenal mass is unchanged. Small lymph nodes on the left side of the celiac artery are also present previously. CT/Chest WITH Contrast IMPRESSION: 1. No CT evidence of pulmonary nodules or mass in the chest. 2. 1.1 cm lymph node in the right anterior carinal space, tiny lymph nodes adjacent to the transverse aorta and small lymph node in the left hilum are unchanged. 3. 2 cm left adrenal mass is unchanged. 4. Small lymph nodes adjacent the left side of the celiac artery are unchanged. 5. 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 6. No significant interval change when compared to 08/11/2018. Electronically Signed: Goyo Casillas MD at 9:43 EDT , Service support ,
--- NOTE | 2018-10-27 13:09 | CT_ITS ---
STUDY: CT ABDOMEN AND PELVIS WITH CONTRAST REASON FOR EXAM: Female, 53 years old. Restaging ovarian carcinoma. RADIATION DOSAGE (If Supplied By Facility): CTDIvol = ( 12.77 ) mGy, DLP = ( 653.22 ) mGycm TECHNIQUE: Transaxial images were obtained from the dome of the diaphragm to the symphysis pubis without oral contrast. Isovue 300 100 IV was administered. Sagittal and coronal images were reconstructed. Individualized dose optimization techniques were used for this CT. COMPARISON: 08/11/2018. FINDINGS: Minimal subsegmental atelectasis in the right posterior lung base. The visualized portions of the heart are within normal limits. Normal liver. Small ascites overlying the right lower hepatic lobe surface. Normal gallbladder and extrahepatic biliary system. Normal spleen. Normal pancreas. Left adrenal gland: 2 x 1.6 cm mass. Right adrenal gland: Normal. Normal right kidney. Normal left kidney. Small hiatal hernia. Normal small intestine. Normal colon. The appendix is visualized and appears normal. Atherosclerotic calcifications along the abdominal aorta and iliac arteries. Normal inferior vena cava. Matted necrotic retroperitoneal lymphadenopathy measuring at least 5.6 x 2.3 cm. Normal urinary bladder. 4.3 x 4.1 cm necrotic mass behind the bladder. Normal abdominal wall. No acute osseous abnormality. CT/Abdomen/Pelvis W IV Cont ONLY IMPRESSION: 1. Necrotic retroperitoneal lymphadenopathy measuring at least 5.6 x 2.3 cm. 4. 0.3 x 4.1 cm necrotic mass behind the bladder. 2. 2 x 1.6 cm mass in the left adrenal gland. 3. Small ascites overlying the right lower hepatic lobe surface. 4. Small hiatal hernia. 5. No significant change since 08/11/2018. Electronically Signed: Goyo Casillas MD at 15:38 EDT , Service support ,
== END ==
PROVIDERS: Referring Provider Internal Medicine Hematology & Oncology; Visit Provider Internal Medicine Hematology & Oncology
DX: C56.9 Malignant neoplasm of unspecified ovary (principal); C77.9 Secondary and unspecified malignant neoplasm of lymph node, unspecified; C78.6 Secondary malignant neoplasm of retroperitoneum and peritoneum; E27.9 Disorder of adrenal gland, unspecified; R91.1 Solitary pulmonary nodule
CPT/HCPCS: 71260; 74177; Q9967

== ENCOUNTER → 2018-12-25 08:06 | Outpatient (CLI) | payer OTHER, SELFPAY ==
[2018-04-17 09:57] VITALS: BMI 22.3
[2018-12-03 08:58] VITALS: BMI 23.5
--- NOTE | 2018-12-25 08:07 | CT_ITS ---
STUDY: CT ABDOMEN AND PELVIS WITH CONTRAST REASON FOR EXAM: Female, 53 years old. Follow-up examination for ovarian cancer. Patient is on chemotherapy. Prior radiation. RADIATION DOSAGE (If Supplied By Facility): CTDIvol = ( 8.73 ) mGy, DLP = ( 658.52 ) mGycm TECHNIQUE: Transaxial images were obtained from the dome of the diaphragm to the symphysis pubis without oral contrast. 100mL IV Isovue 300 was administered. Sagittal and coronal images were reconstructed. Individualized dose optimization techniques were used for this CT. COMPARISON: Comparison is made with prior study dated October 27, 2018. FINDINGS: Stable minimal increased markings at the right lung base suggestive of atelectasis and/or scarring. Coronary artery calcification. Normal liver. Minimal amount of free fluid overlying the right lobe of the liver. Normal gallbladder and extrahepatic biliary system. Normal spleen. Normal pancreas. There is a 2.1 cm x 1.9 cm hypodense nodule in the left adrenal gland. This is unchanged. Normal right kidney. Normal left kidney. Normal visualized stomach. Normal small intestine. Once again, there is evidence of the circumferential wall thickening of the rectum. There is non-visualization of the appendix. There is diffuse atherosclerotic calcification of the abdominal aorta, without a demonstrated aneurysm. Normal inferior vena cava. There is retroperitoneal lymphadenopathy with enlarged nodes greater than 10-15mm in the short axis. These lymph nodes show decreased attenuation suggesting possible necrosis. Diffuse bladder wall thickening. Stable 4.3 cm x 4.1 cm necrotic type mass posterior to the urinary bladder. The patient is status post hysterectomy and bilateral salpingo-oophorectomy. Normal abdominal wall. Normal osseous structures. CT/Abdomen/Pelvis W IV Cont ONLY IMPRESSION: Stable retroperitoneal lymphadenopathy showing areas of necrosis. Stable necrotic mass in the pelvis behind the bladder. Stable left adrenal nodular mass. Electronically Signed: Sesar Arcos, at 9:13 EDT , Service support ,
--- NOTE | 2018-12-25 08:07 | CT_ITS ---
STUDY: CT CHEST WITH CONTRAST REASON FOR EXAM: Female, 53 years old. History of ovarian cancer. Follow-up examination. RADIATION DOSAGE (If Supplied By Facility): CTDIvol = ( 8.73 ) mGy, DLP = ( 658.52 ) mGycm TECHNIQUE: Transaxial imaging was performed following intravenous administration of 100mL IV Isovue 300. Multiplanar coronal and sagittal images were reformatted. Individualized dose optimization techniques were used for this CT. COMPARISON: Comparison is made with prior study dated October 27, 2018. FINDINGS: A left-sided portacatheter is seen. The tip is in the superior vena cava. Stable mild increased markings at the right lung base suggestive of evolving atelectasis and/or scarring. There is no demonstrated pleural abnormality. Normal heart and pericardium. There are scattered small lymph nodes within the mediastinum, which are normal in size and morphology most compatible with reactive lymph hyperplasia. Normal hilar regions. Normal enhanced pulmonary arteries. Normal aorta arch and descending thoracic aorta. Normal osseous structures. Stable 2 cm left adrenal mass. CT/Chest WITH Contrast IMPRESSION: Stable examination. Electronically Signed: Sesar Arcos, at 10:04 EDT , Service support ,
[2018-12-25] MEDS: 0.9% Saline Lock 10 ML Syringe IV (08:30)
== END ==
PROVIDERS: Referring Provider Internal Medicine Hematology & Oncology; Visit Provider Internal Medicine Hematology & Oncology
DX: C56.9 Malignant neoplasm of unspecified ovary (principal); R91.1 Solitary pulmonary nodule
CPT/HCPCS: 71260; 74177; Q9967; A4216

== ENCOUNTER → 2019-01-21 12:59 | Outpatient (CLI) | payer OTHER, SELFPAY ==
[2018-04-17 09:57] VITALS: BMI 22.3
[2018-12-31 08:52] VITALS: BMI 23.6
--- NOTE | 2019-01-21 13:01 | ECHOCSONC_ITS ---
Reason For Study: EF evaluation, ovarian cancer Procedure This was a 2D Doppler, Color Flow transthoracic echocardiogram. The exam was of adequate technical quality. Exam performed in department. Left Ventricle Normal LV size. Left ventricular systolic function is normal. The estimated ejection fraction is 65 %. The global longitudinal strain = -23 % (normal). There is evidence of diastolic dysfunction. No regional wall motion abnormalities noted. Right Ventricle Normal RV size. Normal systolic function. Atria The left atrium is moderately enlarged. The right atrium is mildly enlarged. No doppler evidence for ASD. Mitral Valve Moderate diffuse mitral valve thickening. Mild diffuse mitral valve calcification. Moderate mitral valve stenosis. Stable appearing bioprosthetic mitral valve apparatus. Trivial transvalvular insufficiency of the mitral valve. Tricuspid Valve Normal tricuspid valve. Mild to moderate (1-2+) tricuspid valve insufficiency. Right ventricular systolic pressure estimated to be 25 mmHg. Aortic Valve Moderate aortic stenosis. Stable appearing bioprosthetic aortic valve apparatus. Pulmonic Valve The pulmonic valve is not well visualized. Trivial pulmonic valve insufficiency. Great Vessels The aortic root is not well visualized per. Pericardium/Pleural No pericardial effusion. MMode/2D Measurements & Calculations LVIDd: 4.7 cm IVSd: 1.0 cm LVOT diam: 1.9 cm LVIDs: 2.8 cm LVPWd: 0.96 cm LVOT area: 2.9 cm2 RVDd: 3.4 cm FS: 40.3 % LAV(MOD-bp): 73.8 ml LA A4 area: 21.1 cm2 LA dimension(2D): 4.3 cm LAV(MOD-bp) Indexed: 42.3 ml/m2 LAV(MOD-sp2): 75.8 ml LAV(MOD-sp4): 66.0 ml RA A4 area: 17.3 cm2 Time Measurements MV dec time: 0.23 sec Doppler Measurements & Calculations MV E max norm: 207.6 cm/sec Lat Peak E' Norm: 5.9 cm/sec Med Peak E' Norm: 4.6 cm/sec MV A max norm: 160.7 cm/sec E/E' lat: 35.0 E/E' med: 44.7 MV E/A: 1.3 MV V2 max: 195.1 cm/sec Ao V2 max: 292.8 cm/sec LV V1 max: 101.5 cm/sec MV max P.3 mmHg Ao max P.3 mmHg LV V1 max P.1 mmHg MV V2 mean: 134.4 cm/sec Ao V2 mean: 219.3 cm/sec LV V1 mean P.6 mmHg MV mean P.8 mmHg Ao mean P.7 mmHg LV V1 mean: 77.3 cm/sec MV V2 VTI: 49.5 cm Ao V2 VTI: 64.9 cm LV V1 VTI: 22.9 cm MVA(VTI): 1.3 cm2 TYSON(I,D): 1.0 cm2 TYSON(V,D): 0.99 cm2 SV(LVOT): 65.8 ml PA V2 max: 105.8 cm/sec TR max norm: 234.5 cm/sec TR max P.0 mmHg MV P1/2t-pr_phl: 77.6 msec Interpretation Summary Left ventricular systolic function is normal. The estimated ejection fraction is 65 %. The global longitudinal strain = -23 % (normal). The left atrium is moderately enlarged. The right atrium is mildly enlarged. Stable appearing bioprosthetic mitral valve apparatus. Moderate mitral valve stenosis. Trivial transvalvular insufficiency of the mitral valve. Mild to moderate (1-2+) tricuspid valve insufficiency. Stable appearing bioprosthetic aortic valve apparatus. Moderate aortic stenosis. Trivial pulmonic valve insufficiency. Right ventricular systolic pressure estimated to be 25 mmHg. There is evidence of diastolic dysfunction. Ordering Physician: Ming Harrison Referring Physician: Ming Harrison Performed By: Ellie Tse, VINEET, RVT
== END ==
PROVIDERS: Referring Provider Internal Medicine Hematology & Oncology; Visit Provider Internal Medicine Hematology & Oncology
DX: C56.9 Malignant neoplasm of unspecified ovary (principal); C77.9 Secondary and unspecified malignant neoplasm of lymph node, unspecified; Z79.899 Other long term (current) drug therapy
CPT/HCPCS: 0399T; 93306; C8929

== ENCOUNTER → 2019-03-02 08:00 | Outpatient (CLI) | payer OTHER, SELFPAY ==
[2018-04-17 09:57] VITALS: BMI 22.3
[2019-02-04 10:17] VITALS: BMI 23.1
--- NOTE | 2019-03-02 08:01 | CT_ITS ---
STUDY: CT CHEST WITH CONTRAST REASON FOR EXAM: Female, 53 years old. History of ovarian cancer and chemotherapy. RADIATION DOSAGE (If Supplied By Facility): CTDIvol = ( 8.14 ) mGy, DLP = ( 715.47 ) mGycm TECHNIQUE: Transaxial imaging was performed following intravenous administration of 100 IV Isovue 300. Individualized dose optimization techniques were used for this CT. COMPARISON: Prior study of 12/25/2018 FINDINGS: There is a left-sided MediPort with the tip in the distal SVC. There are minimal fibrotic changes of the right lung base. There is no demonstrated pleural abnormality. Normal heart and pericardium. There is a precarinal node measuring 9 mm in short axis. Normal hilar regions. Normal enhanced pulmonary arteries. There are calcified plaques of the thoracic aorta. Normal osseous structures. Status post sternotomy changes are seen. There is focal calcification of the posterior longitudinal ligament of the thoracic spine at the T9-10 level. Abdominal findings are reported separately. CT/Chest WITH Contrast IMPRESSION: 1. Minimal fibrotic changes of the right lung base. 2. Left-sided Mediport with catheter tip in the distal SVC. 3. Calcified plaques of the thoracic aorta. 4. Findings are stable in the interval. Electronically Signed: Jose Elias Chan MD at 19:53 EDT , Service support ,
--- NOTE | 2019-03-02 08:01 | CT_ITS ---
STUDY: CT ABDOMEN AND PELVIS WITH CONTRAST REASON FOR EXAM: Female, 53 years old. History of ovarian cancer, chemotherapy RADIATION DOSAGE (If Supplied By Facility): CTDIvol = ( 8.14 ) mGy, DLP = ( 715.47 ) mGycm TECHNIQUE: Transaxial images were obtained from the dome of the diaphragm to the symphysis pubis without oral contrast. 100 IV Isovue 300 was administered. Sagittal and coronal images were reconstructed. Individualized dose optimization techniques were used for this CT. COMPARISON: Prior study of 12/25/2018 FINDINGS: There is a tiny calcified granuloma of the right lower lobe. The visualized portions of the heart are within normal limits. Normal liver. The gallbladder is contracted. Normal spleen. Normal pancreas. The right adrenal is normal. There is a 2.1 x 2.0 cm left adrenal nodule. This is stable in the interval. Normal right kidney. Normal left kidney. Normal visualized stomach. Normal small intestine. There is again demonstrated circumferential wall thickening of the rectum. There is non-visualization of the appendix. There is a small amount of ascites in the abdomen and pelvis, new in the interval. There are calcified plaques of the abdominal aorta and common iliac arteries. Normal inferior vena cava. Retroperitoneal adenopathy is again noted, with nodes present measuring up to 4.3 x 2.8 cm. Nodes appear slightly decreased in size in the interval. There is diffuse bladder wall thickening. There is a necrotic mass posterior to the bladder measuring 5.0 x 4.1 x 5.1 cm. This is slightly increased in size from the previous study. Status post hysterectomy and bilateral salpingo-oophorectomy changes are noted. Normal abdominal wall. There is multilevel Schmorl's node formation of multiple thoracic and lumbar vertebrae, which is of no clinical significance. Status post sternotomy changes are seen. CT/Abdomen/Pelvis W IV Cont ONLY IMPRESSION: 1. Stable 2.1 x 2.0 cm left adrenal nodule. 2. Circumferential wall thickening of the rectum, stable in the interval. 3. There is a small amount of ascites in the abdomen and pelvis, new in the interval. 4. Retroperitoneal adenopathy is seen, with nodes present measuring up to 4.3 x 2.8 cm. Nodes appear slightly decreased in size in the interval. 5. Diffuse bladder wall thickening. 6. Necrotic mass posterior to the bladder measuring 5.0 x 4.1 x 5.1 cm appearing slightly increased in size from the previous study. 7. Status post hysterectomy and bilateral salpingo-oophorectomy. Electronically Signed: Jose Elias Chan MD at 19:23 EDT , Service support ,
== END ==
PROVIDERS: Referring Provider Internal Medicine Hematology & Oncology; Visit Provider Internal Medicine Hematology & Oncology
DX: C56.9 Malignant neoplasm of unspecified ovary (principal); C77.9 Secondary and unspecified malignant neoplasm of lymph node, unspecified; C78.6 Secondary malignant neoplasm of retroperitoneum and peritoneum; R91.1 Solitary pulmonary nodule; E27.9 Disorder of adrenal gland, unspecified
CPT/HCPCS: 71260; 74177; Q9967; A4216

== ENCOUNTER 2019-03-09 09:47 | Day surgery (SDC) | payer OTHER, SELFPAY ==
[2019-03-04 10:06] VITALS: BMI 22.3
[2019-03-06 08:16] VITALS: BMI 22.1
--- NOTE | 2019-03-09 09:56 | HP.PCM_ITS ---
History and Physical Date of Admission: 03/09/19 Intake Vital Signs 03/06/19 Body Mass Index (BMI) 22.1 03/06/19 Height 5 ft 6 in 03/06/19 Weight: 137 lb 03/06/19 Body Mass Index (BMI) 22.1 03/06/19 Blood Pressure 108/62 03/06/19 Blood Pressure Location Rt brachial 03/06/19 Blood Pressure Position Sitting 03/06/19 Respiratory Rate 16 03/04/19 Body Mass Index (BMI) 22.1 Intake Visit Reasons: Procto-Sigmoidoscopy per Dr. Amanda Ramos Chief Complaint: Ovarian cancer on treatment [employer] Required: No Is patient in pain?: Yes (rectum) Pain scale (1-10): 7 Allergies sulfamethoxazole [From Bactrim] Allergy (Severe, Verified 03/06/19 08:16) Other trimethoprim [From Bactrim] Allergy (Severe, Verified 03/06/19 08:16) Other ampicillin Adverse Reaction (Severe, Verified 03/06/19 08:16) Rash gentamicin Adverse Reaction (Severe, Verified 03/06/19 08:16) Rash Medications traMADol [Ultram] 50 mg PO DAILY PRN 10/02/17 [History Confirmed 03/06/19] B-complex with vitamin C capsule 1 cap PO DAILY 07/01/18 [History Confirmed 03/06/19] acetaminophen 325 mg tablet 500 mg PO BID PRN tab 07/01/18 [History Confirmed 03/06/19] loratadine 10 mg tablet 10 mg PO .4xmonth tab 07/01/18 [History Confirmed ] pegfilgrastim 6 mg/0.6 mL subcutaneous syringe 6 mg SC QMONTH ml 07/01/18 [History Confirmed 03/06/19] Lansoprazole 0 mg PO DAILY 30 Days #30 capsule. 09/10/18 [Rx Confirmed 03/06/19] Ondansetron HCl [Zofran] 4 mg PO UD PRN #30 tab 09/10/18 [Rx Confirmed 03/06/19] Rivaroxaban [Xarelto] 20 mg PO DAILY 30 Days #30 tab 09/10/18 [Rx Confirmed 03/06/19] Calcium Carbonate/Vitamin D3 [Calcium 600 + Vit D Tablet] 600 mg PO BID 11/05/18 [History Confirmed 03/06/19] rosuvastatin 40 mg tablet 40 mg PO DAILY #90 tab 01/16/19 [Rx Confirmed 03/06/19] metoprolol succinate ER 25 mg tablet,extended release 24 hr 25 mg PO DAILY #90 tab 01/31/19 [Rx Confirmed 03/06/19] suppositories 1 ea RC BID #30 supp 03/06/19 [Rx Confirmed 03/06/19] PFSH Medical History Premature atrial contractions (Chronic) First degree AV block (Chronic) Rheumatic aortic stenosis with regurgitation (Chronic) Chronic diastolic (congestive) heart failure (Chronic) Rheumatic mitral stenosis with regurgitation (Chronic) Hyperlipidemia (Chronic) Alvarez-Mu syndrome (Resolved) Acute deep vein thrombosis (DVT) of popliteal vein of left lower extremity (Acute) Ovarian cancer (Chronic) Peritoneal carcinomatosis (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) Iron deficiency anemia (Acute) Anemia (Chronic) Psoriasis (Acute) Breathing difficulty (Resolved) Rheumatic fever (Resolved) Surgical History H/O aortic valve replacement with tissue graft (Chronic ~04/08/17) History of mitral valve replacement with tissue graft (Chronic ~04/08/17) History of left cataract surgery (Acute) History of right cataract surgery (Acute) s/p Insertion vascular port (Chronic ~09/19/17) H/O hysterectomy with oophorectomy (Resolved) Family History Mother Cancer Grandmother Diabetes father mother Grandmother Heart disease mother Social History (Updated 03/06/19 @ 08:52 by Jazmyne Dupont MD) Smoking Status: Former smoker how long ago did patient quit smokin years ago alcohol intake: current alcohol intake frequency: holidays/special occasions only substance use type: does not use caffeine: Yes Type: coffee Number of servings: 5 HPI HPI HPI: JEREL ZELAYA, is a 53 F who presents to the office today for rectal pain and bleeding. Patient states that after her radiation in the fall 2017 for metastatic ovarian cancer, she noticed she started having fecal urgency; however for the last 2 weeks she is also noticed increased pain as well as blood with bowel movements or clots which have been worse. Patient will have normal bowel movements and then blood after passing the stool. Patient rates her pain with after bowel movements a 10+ more recently. Patient states she is had decreased appetite due to this pain. Patient is on Xarelto for DVT in August 2017. Patient also currently states she may have a UTI. HPI HPI HPI: JEREL ZELAYA, is a 53 F who presents to the office today for ROS General General: Yes weight change and fatigue Additional Details: Metastatic ovarian cancer Gastro Gastrointestinal: Yes abdominal pain, No nausea or vomiting, No diarrhea, No constipation, Yes blood in stool, Yes acid reflux, No hemorrhoids, No ulcers, No gallbladder problem, No black,tarry stools Exam Const General: cooperative, comfortable, no acute distress Resp Effort & Inspection: normal respiratory effort Cardio Rate: regular rate GI Inspection: non-distended Palpation: soft, no guarding, tender (Minimal tenderness palpation suprapubically, no peritoneal signs) Psych Affect: normal affect Assessment & Plan Problems 1. Rectal pain K62.89 2. Rectal bleeding K62.5 3. S/P radiation therapy Z92.3 4. Ovarian cancer C56.9 5. Peritoneal carcinomatosis C78.6; C80.1 Plan Will give the patient hydrocortisone 2.5%/lidocaine 5% suppositories to be used twice daily recommend patient getting the Preparation H suppository applicator. Hopefully this will help the patient prior to doing the prep-as her pain/bleeding likely due to radiation proctitis. I have discussed the above with the patient. I have offered the patient proctoscopy or colonoscopy for evaluation. Patient prefer to try to do the complete colonoscopy if possible as she has never had a colonoscopy. Patient will attempt the prep, patient is unable to tolerate the prep she will let me know but would still plan to do the proctoscopy on Saturday. I have explained the risks/benefits of the procedure and described the procedure. I have discussed the risks with the patient, including but not limited to: infection, bleeding, perforation of the GI tract requiring emergency surgery, inability to complete the procedure, injury to any internal organs, complications of anesthesia, etc. - the patient understands and agrees to proceed. I have answered all the patient's questions to the patient's satisfaction and the patient has no further questions. The patient has been given instructions for the colon cleansing preparation. 2 days of clears, MiraLAX Dulcolax split prep today before the procedure. Jazmyne Dupont M.D. Pager: [phone] [facility] [address] [place] [address], [facility], [address] [place] [address] Office: [phone] Orders Orders: Colonoscopy Today K62.5, K62.89, Z92.3 Medications New: [suppositories] Hydrocortisone 25mg/lidocaine 5% suppositories 1 ea [place] BID 30 supp 1RF Plan Detail Follow Up We will schedule colonoscopy Coding Level of Care Code Off vis,est,level 3 Diagnoses Rectal pain K62.89 Rectal bleeding K62.5 S/P radiation therapy Z92.3 Ovarian cancer C56.9 Peritoneal carcinomatosis C78.6; C80.1 03/06/19 0852 <Electronically signed by Jazmyne Anthony am, MD> Date _ Jazmyne Dupont MD
[2019-03-09 10:05] VITALS: BP 97/59; PULSE 88; RESP 16; TEMP 36.7; O2SAT 100; BMI 21.6
[2019-03-09 12:38] VITALS: BP 97/59; BP 99/58; PULSE 72; RESP 16; TEMP 36.3; O2SAT 100
[2019-03-09 12:40] VITALS: BP 94/57; BP 97/59; PULSE 70; RESP 16; O2SAT 100
[2019-03-09 12:45] VITALS: BP 100/58; BP 97/59; PULSE 71; RESP 16; O2SAT 100
[2019-03-09 12:50] VITALS: BP 105/59; BP 97/59; PULSE 71; RESP 16; O2SAT 100
--- NOTE | 2019-03-09 12:56 | OP.ENDO_ITS ---
03/09/2019 Frankie Tyson Re : Colonoscopy procedure for Ev Nicholson Tyson This procedure was performed on Saturday, March 09, 2019. My impressions and recommendations are as follows: Impressions : - Congested mucosa in the rectum. - No specimens collected. - Radiation proctitis. Recommendations : - Discharge patient to home. - - Use Pentasa (mesalamine) 1 gram per rectum daily at bedtime--checking see if insurance will cover. - No recommendation at this time regarding repeat colonoscopy due to await improvement of proctitis. - Continue present medications. My findings are described in the full procedure note, which is enclosed. If I can be of further assistance, please feel free to contact me at Doctor phone number(s): , Work: . Sincerely, MD Jazmyne Saab MD 03/09/2019 12:55:54 PM This report has been signed electronically.
[2019-03-09 13:52] VITALS: BP 97/59
== END 2019-03-09 13:54 | disposition home or self-care (01) ==
LOC: EN 09:49 → AC 09:49
PROVIDERS: Visit Provider Surgery
PROC: 0DJD8ZZ Inspection of Lower Intestinal Tract, Via Natural or Artificial Opening Endoscopic (ICD-10-PCS; CPT 45378; principal; 2019-03-09 10:55)
DX: K62.7 Radiation proctitis (principal); Y84.2 Radiological procedure and radiotherapy as the cause of abnormal reaction of the patient, or of later complication, without mention of misadventure at the time of the procedure; Y92.9 Unspecified place or not applicable; Z53.9 Procedure and treatment not carried out, unspecified reason; C56.9 Malignant neoplasm of unspecified ovary; C78.6 Secondary malignant neoplasm of retroperitoneum and peritoneum; I50.9 Heart failure, unspecified; D64.9 Anemia, unspecified; E78.00 Pure hypercholesterolemia, unspecified; K21.9 Gastro-esophageal reflux disease without esophagitis; Z88.2 Allergy status to sulfonamides; Z88.1 Allergy status to other antibiotic agents; Z88.0 Allergy status to penicillin; Z79.01 Long term (current) use of anticoagulants; Z79.899 Other long term (current) drug therapy; Z92.3 Personal history of irradiation; Z86.718 Personal history of other venous thrombosis and embolism; Z87.891 Personal history of nicotine dependence; Z95.2 Presence of prosthetic heart valve
CPT/HCPCS: 45378; J7120

== ENCOUNTER 2019-03-13 08:25 | Inpatient (IN) | payer OTHER, SELFPAY ==
[2019-03-04 10:06] VITALS: BMI 22.3
[2019-03-13] VITALS (10 sets, daily range): BP systolic 92–134; BP diastolic 47–74; PULSE 70–94; RESP 13–18; TEMP 36.8–37.2; O2SAT 99–100; BMI 22.7; BMI 22.3
--- NOTE | 2019-03-13 08:33 | ED.DCSUM_ITS ---
History of Present Illness Chief Complaint: Complaint Informant: Patient, EMS Pain: Pelvic Pain Context: Gradual Onset Timing: Continuous Quality: Aching - and fullness Location: Suprapubic Current Severity: Severe Maximum Severity: Severe Worsened by: - - nothing Relieved by: - - nothing Issue: Vaginal bleeding Onset: Today - overnight, approx 7 hrs Context: Sudden Onset Timing: Continuous Current Severity: Heavy, - - w/ large clots Maximum Severity: Heavy Associated Symptoms: - - urinary retention Narrative: Postmenopausal female status post total hysterectomy 2.5 years ago for ovarian cancer, she still has tumors present at the vaginal cuff that continued to bleed daily, but very mild. This is much more severe bleeding that started this morning, she is on Xarelto because of a mechanical heart valve. She continues to have IV chemotherapy. Since early in the process she has not been able to urinate and now feels full and extremely uncomfortable because she cannot urinate. She denies any lightheadedness, syncope, nausea/vomiting. - Past Medical History (1) Acute deep vein thrombosis (DVT) of popliteal vein of left lower extremity Status: Chronic (2) C. difficile diarrhea Status: Chronic (3) Iron deficiency anemia Status: Chronic (4) Left adrenal mass Status: Chronic (5) Chronic diastolic (congestive) heart failure Status: Chronic (6) First degree AV block Status: Chronic (7) H/O aortic valve replacement with tissue graft Status: Chronic Comment: 21mm Trifecta Valve 04/08/17 (8) History of mitral valve replacement with tissue graft Status: Chronic Comment: 29mm Biocor Valve 04/08/17 (9) Hyperlipidemia Status: Chronic (10) Ovarian cancer Status: Chronic (11) Peritoneal carcinomatosis Status: Chronic Past Medical History - Allergies and Home Meds Allergies/Adverse Reactions: Allergies sulfamethoxazole [From Bactrim] Allergy (Severe, Verified 03/13/19 08:26) Other JOHNATHON DEMOND'S SYNDRONE trimethoprim [From Bactrim] Allergy (Severe, Verified 03/13/19 08:26) Other JOHNATHON DEMOND'S SYNDRONE ampicillin Adverse Reaction (Severe, Verified 03/13/19 08:26) Rash gentamicin Adverse Reaction (Severe, Verified 03/13/19 08:26) Rash Primary Care Physician: Frankie Tyson MD [Primary Care Provider] - Surgical History: hysterectomy Lives: Spouse/ Significant Other Smoking Status: Former smoker Review of Systems General: Denies: Chills, Fever, Sweats Eyes: Denies: Visual changes - bilaterally, Diplopia ENT: Denies: Rhinorrhea, Sore throat Cardiovascular: Denies: Chest pain, Palpitations Respiratory: Denies: Dyspnea, Cough, Dyspnea on exertion Gastrointestinal: Reports: Abdominal pain, Diarrhea - loose but solid. Denies: Nausea, Vomiting, Melena, Hematochezia Genitourinary: Reports: - - urinary retetion, - - vaginal bleeding. Denies: Dysuria, Hematuria, Frequency Musculoskeletal: Denies: Back pain, Extremity Pain Skin: Denies: Rash, Wounds Neurological: Denies: Headache, Weakness, Numbness Physical Exam Vital Signs/Narrative: Vital Signs Temp Pulse Resp BP Pulse Ox 03/13/19 08:27 98.7 F 94 15 134/74 H 99 Inital Vital Signs reviewed: Yes General: Well nourished, Well developed Head: Normocephalic, Atraumatic Eyes: Perrl, EOMI ENT: Moist mucous membranes, No rhinorrhea Neck: Supple, Nontender Cardiovascular: Regular rate, Regular rhythm, Murmur - w/ click, consistent w/ mechincal valve Respiratory: No distress, CTA bilaterally, Chest nontender Abdomen: Soft, Normal bowel sounds, Tender - suprapubic, Guarding - suprapubic. Negative for: Nondistended - suprapubic distension, Rebound tenderness Extremities: Nontender, No edema Skin: Normal color, No rash, No Trauma Neurological: Alert, Oriented x3, Cranial nerves II-XII grossly intact, Normal Strength, Normal Sensation Psychological: Normal affect, Normal Mood Diagnostic/Tx/Re-eval Laboratory Results 03/13/19 03/13/19 03/13/19 08:40 08:50 08:50 WBC 8.5 RBC 3.15 L Hgb 8.4 L Hct 26.5 L MCV 84.1 MCH 26.7 L MCHC 31.7 L RDW Std Deviation 60.9 H RDW Coeff of Liz 20.6 H Plt Count 326 MPV 9.2 Immature Gran % (Auto) 1.100 H Neut % (Auto) 87.8 H Lymph % (Auto) 5.0 L Manati % (Auto) 4.1 Eos % (Auto) 1.3 Baso % (Auto) 0.7 Absolute Neuts (auto) 7.5 Absolute Lymphs (auto) 0.43 L Absolute Nucleated RBC 0.00 Nucleated RBC % 0 Differential Comment COMMENT Sodium 132 L Potassium 3.6 Chloride 99 Carbon Dioxide 27.0 Anion Gap 6 BUN 12 Creatinine 0.62 Estim Creat Clear Calc 98.24 Est GFR (MDRD) Af Amer 130 Est GFR (MDRD) Non-Af 108 BUN/Creatinine Ratio 19.5 Glucose 97 Calcium 8.7 Urine Color Red Urine Clarity Cloudy Urine pH 7.0 Ur Specific Success 1.010 Urine Protein 500 H Urine Glucose (UA) Normal Urine Ketones 15 H Urine Occult Blood 250 H Urine Nitrite Negative Urine Bilirubin Negative Urine Urobilinogen Normal Ur Leukocyte Esterase Negative Urine RBC > 100 SEEN Urine WBC 0 SEEN Ur Squamous Epith Cells 0 SEEN Urine Bacteria 0 SEEN Urine Mucus 0 SEEN - Medical Decision/Diagnostic Studies Initially, Blake catheter was placed after a bladder scan showed 400+ milliliters. She feels much better afterwards, she has gross hematuria. Her catheter clotted off so we replaced it with a 22 Bengali triple-lumen Blake, which also clotted off but nursing was able to dislodge it with irrigation. We got her on continuous bladder irrigation, which is functioning well but she is still bleeding. Blood work shows stable chronic anemia. No sign of infection in her urine. No neutropenia. I attempted to do a pelvic exam to evaluate the lesions in her vaginal vault that she has had bleeding from, however we only have one size disposable speculum and her introitus is too small to comfortably insert it, I feared for tearing tissue and so we stopped, the patient was comfortable with that. In the first 3-4 cm, there is no blood present in the vaginal vault, the Blake is in place appropriately. I discussed with Dr. Wilder who was amenable to admission and continuing [facility] inpatient. ED Disposition - Plan for ED Patient: Disposition: Acute Care Hospital [facility] Diagnosis: Hematuria, Anticoagulant long-term use, History of ovarian cancer, Anemia Referrals: Frankie Tyson MD [Primary Care Provider] -
[2019-03-13 09:10] LABS: Bacteria 0 SEEN /hpf (None Seen); Mucous, Urine 0 SEEN /hpf (<or=2+); Squamous Epithelial Cells - UA 0 SEEN /hpf (5-10); White Blood Cells 0 SEEN /hpf (0-5)
[2019-03-13 09:14] LABS: Absolute Lymphocyte Count 0.43 X10^3/uL (0.83-4.51); Absolute Neutrophil Count 7.5 X10^3/uL (2.0-7.7); Basophil# 0.06 X10^3/uL; Basophil% 0.7 % (0-1); Eosinophil# 0.11 X10^3/uL; Eosinophils% 1.3 % (0-5); Hematocrit 26.5 % (37-47); Hemoglobin 8.4 g/dL (12.0-15.0); Lymphocyte # 0.43 X10^3/ul (4.0); Mean Corp Hgb Conc 31.7 g/dL (32-36); Mean Corpuscular Hgb 26.7 pg (27.0-32.0); Mean Corpuscular Volume 84.1 fL (81-99); Mean Platelet Vol. 9.2 fl (6.2-12.0); Monocyte# 0.35 X10^3/uL; Monocyte% 4.1 % (0-10); NRBC Flagged by Analyzer 0 % (0-5); Neutrophil % 87.8 % (47-70); POSITIVE DIFFERENTIAL YES; POSITIVE MORPHOLOGY YES; Platelet Count 326 K/mm3 (150-450); RBC Distribution Width CV 20.6 % (11.6-14.6); RBC Distribution Width SD 60.9 fl (35.1-43.9); Red Blood Count 3.15 M/mm3 (4.2-5.4); White Blood Count 8.5 K/mm3 (4.4-11.0)
[2019-03-13 09:19] LABS: Color, Urine Red (Yellow); Glucose, Dipstick Normal (Normal); Ketone-Dipstick 15 mg/dl (Negative); Leukocyte Esterase-Dipstick Negative /ul (Negative); Nitrite-Dipstick Negative (Negative); Occult Blood-Urine 250 /ul (Negative); Protein-Dipstick 500 mg/dl (Negative); Urine Bilirubin Dipstick Negative (Negative); Urine Clarity Cloudy (Clear); Urine Urobilinogen Normal (Normal)
[2019-03-13 09:21] LABS: Differential Indicated SCAN CRITERIA MET
[2019-03-13 09:27] LABS: Anion Gap 6 (5-15); BUN 12 mg/dL (7-18); BUN/Creat Ratio 19.5 RATIO (10-20); Calcium,Total 8.7 mg/dL (8.5-10.1); Chloride 99 mmol/L (98-107); Creatinine, Serum 0.62 mg/dL (0.55-1.02); EST Glomerular Filtration Rate 108 mL/min (>60); Est Glom Filt Rate - Afr Amer 130 mL/min (>60); Estimated Creatinine Clearance 98.24 ml/min; Glucose 97 mg/dL (74-106); Potassium 3.6 mmol/L (3.5-5.1); Sodium Level 132 mmol/L (136-145)
[2019-03-13 09:30] LABS: Red Blood Cells-Urine > 100 SEEN /hpf (0-5)
[2019-03-13] MEDS: Morphine 4 MG/ML Syringe IV (11:13)
--- NOTE | 2019-03-13 11:35 | ED.RN ---
FIRST 3L BAG COMPLETED, SECOND 3L BAG HUNG, PT TOLERATING WELL.
--- NOTE | 2019-03-13 12:20 | ED.RN ---
BAG #2 COMPLETED, BAG #3 HUNG.
--- NOTE | 2019-03-13 13:08 | NURSING ---
PCU HEMATURIA, OVARIAN CA ASHELFAH
--- NOTE | 2019-03-13 13:26 | PCM.HP.STD ---
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 (4) H/O aortic valve replacement with tissue graft Status: Chronic Comment: 21mm Trifecta Valve 04/08/17 (5) Chronic diastolic (congestive) heart failure Status: Chronic (6) Rheumatic mitral stenosis with regurgitation Status: Chronic (7) Hyperlipidemia Status: Chronic Qualifiers: Hyperlipidemia type: unspecified Qualified Code(s): E78.5 - Hyperlipidemia, unspecified (8) Ovarian cancer Status: Chronic (9) Peritoneal carcinomatosis Status: Chronic (10) Iron deficiency anemia Status: Chronic (11) Anemia Status: Chronic Qualifiers: Anemia type: unspecified type Qualified Code(s): D64.9 - Anemia, unspecified History of Present Illness Date of Admission: 03/13/19 Chief Complaint: Bleeding. The patient is a 53 year old F with multiple medical comorbidities as mentioned above presented to the emergency room because of what she thought is a vaginal bleeding. Her symptoms started around 1 AM this morning with bleeding, thinking it is a vaginal bleeding, bright red blood, large amount, with large blood clots and she was changing her vaginal pads almost 1 hour. At this time, she started having pain at the vaginal and urethral area, sharp pain, 10 out of 10 in severity, nonradiating, intermittent, comes on when she bleeds and without aggravating or relieving factors. She denied dizziness, lightheadedness, palpitation, syncope or presyncope. She denies chest pain or shortness of breath. In the emergency department, her vital signs were stable. Patient mentioned that she has been having intermittent mild vaginal bleeding since she was diagnosed with metastatic ovarian cancer on August,. Initially, the concern was for vaginal bleeding. Upon the examination by the ED physician, patient was found to have gross hematuria. Blake catheter inserted and she was started on continuous bladder irrigation and obviously, she has no gross hematuria. She has been on Xarelto for history of DVT. Her routine blood work revealed hemoglobin of 8.4 g/dL and her sodium was 132. Platelet count was normal. Other BMP was unremarkable. She is being admitted for gross hematuria for evaluation, anemia in context of history of metastatic ovarian cancer and being on Xarelto for history of DVT. Past Medical History Past Medical History (Chronic Problems): Chronic Problems (Last Updated 03/13/19 @ 13:25 by Reji Wilder MD) DVT (deep venous thrombosis) (Chronic) Left adrenal mass (Chronic) C. difficile diarrhea (Chronic) Premature atrial contractions (Chronic) First degree AV block (Chronic) Rheumatic aortic stenosis with regurgitation (Chronic) H/O aortic valve replacement with tissue graft (Chronic ~04/08/17) 21mm Trifecta Valve 04/08/17 History of mitral valve replacement with tissue graft (Chronic ~04/08/17) 29mm Biocor Valve 04/08/17 Chronic diastolic (congestive) heart failure (Chronic) Rheumatic mitral stenosis with regurgitation (Chronic) Hyperlipidemia (Chronic) Ovarian cancer (Chronic) Peritoneal carcinomatosis (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) Iron deficiency anemia (Chronic) Anemia (Chronic) Medical History: Medical History (Last Updated 03/13/19 @ 13:25 by Reji Wilder MD) Premature atrial contractions (Chronic) I49.1 First degree AV block (Chronic) I44.0 Rheumatic aortic stenosis with regurgitation (Chronic) I06.2 Chronic diastolic (congestive) heart failure (Chronic) I50.32 Rheumatic mitral stenosis with regurgitation (Chronic) I05.2 Hyperlipidemia (Chronic) E78.5 Ovarian cancer (Chronic) C56.9 Peritoneal carcinomatosis (Chronic) C78.6, C80.1 Regional lymph node metastasis present (Chronic) C77.9 Iron deficiency anemia (Chronic) D50.9 Anemia (Chronic) D64.9 Psoriasis L40.9 Breathing difficulty R06.89 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 Due to Bactrim, does not have complete sulfa allergy, can tolerate lasix Allergies sulfamethoxazole [From Bactrim] Allergy (Severe, Verified 03/13/19 08:26) Other JOHNATHON DEMOND'S SYNDRONE trimethoprim [From Bactrim] Allergy (Severe, Verified 03/13/19 08:26) Other JOHNATHON DEMOND'S SYNDRONE ampicillin Adverse Reaction (Severe, Verified 03/13/19 08:26) Rash gentamicin Adverse Reaction (Severe, Verified 03/13/19 08:26) Rash Home Medications: Ambulatory Orders Medication Instructions Recorded traMADol [Ultram] 50 mg PO DAILY PRN 10/02/17 B-complex with vitamin C capsule 1 cap PO DAILY 07/01/18 acetaminophen 325 mg tablet 500 mg PO BID PRN tab 07/01/18 loratadine 10 mg tablet 10 mg PO PRN PRN tab 07/01/18 Calcium Carbonate/Vitamin D3 600 mg PO BID 11/05/18 [Calcium 600 + Vit D Tablet] rosuvastatin 40 mg tablet 40 mg PO DAILY #90 tab 01/16/19 metoprolol succinate ER 25 mg 25 mg PO DAILY #90 tab 01/31/19 tablet,extended release 24 hr Doxil 0 mg IV QMONTH 03/06/19 Lansoprazole 15 mg PO DAILY 03/06/19 Mesalamine 1 g [place] BID 03/13/19 Ondansetron HCl [Zofran] 4 mg PO PRN PRN 03/13/19 Rivaroxaban [Xarelto] 0.5 tab PO DAILY 03/13/19 Surgical History: Surgical History (Last Reviewed 03/06/19 @ 08:15 by Marlene Vazquez) H/O aortic valve replacement with tissue graft (Chronic) Onset Date: ~04/08/17 Z95.4 21mm Trifecta Valve 04/08/17 History of mitral valve replacement with tissue graft (Chronic) Onset Date: ~04/08/17 Z95.4 29mm Biocor Valve 04/08/17 History of left cataract surgery Z98.February History of right cataract surgery Z98.41 12-26-18 s/p Insertion vascular port Onset Date: ~09/19/17 H/O hysterectomy with oophorectomy Surgical History: hysterectomy, - - Mitral and aortic valve replacement with bioprosthetic valve. Psychiatric History: No pertinent psych hx [employer] History: No pertinent [employer] history Lives: Spouse/ Significant Other Smoking Status: Former smoker Alcohol: None Drugs: None - *Family History Maternal Family History: Family History (Last Reviewed 03/06/19 @ 08:15 by Marlene Vazquez) Mother Cancer Grandmother Diabetes Grandmother Heart disease Paternal Family History: Family History (Last Reviewed 03/06/19 @ 08:15 by Marlene Vazquez) Mother Cancer Grandmother Diabetes Grandmother Heart disease Review of Systems Constitutional: Reports: Weakness. Denies: Anorexia, Chills, Fever Eyes: Denies: Blurred vision, Double vision, Drainage, Redness HEENT: Denies: Difficulty Hearing, Ear Pain, Eye Pain, Nasal Congestion, Sore Throat Cardiovascular: Denies: Chest Pain, Chest Pressure, Edema, Heaviness, Light Headedness, Palpitations, Syncope Respiratory: Denies: Cough, Pleuritic Pain, Shortness of Breath, Sputum production, Wheezing Gastrointestinal: Denies: Abdominal Pain, Constipation, Diarrhea, Dyspepsia, Hematemesis, Hematochezia, Nausea, Melena, Vomiting Genitourinary: Reports: Dysuria, Hematuria. Denies: Frequency Gynecological: Reports: Vaginal bleeding Musculoskeletal: Denies: Arm Pain, Back Pain, Foot Pain Skin: Denies: Dryness, Rash Neurological: Denies: Balance problems, Double vision, Slurred speech, Confusion, Focal weakness, Incoordination, Numbness, Tingling Psychiatric: Denies: Anxiety, Depression Endocrine: Denies: Change in Body Habitus, Polydipsia, Polyuria VTE Information - Inpt Only VTE Present on Admission: No VTE Mechan Device Prophylaxis: SCD's VTE Pharm Prophylaxis ordered?: No Patient Problems: Active and Suspected Problems (Last Updated 03/13/19 @ 13:25 by Reji Wilder MD) Hematuria (Acute) Anticoagulant long-term use (Acute) - Physical Exam General: Alert, Oriented x3, Cooperative, No apparent distress HEENT: Atraumatic, PERRLA, EOMI, Normocephalic Oral: Moist Mucosa, No Gingival or Mucosal Lesions/ Ulcerations Neck: Supple, No JVD, Negative Carotid Bruits, Trachea Midline, Thyroid Normal Size and Texture Lungs: Clear to auscultation, Normal air movement, No rhonchi, No wheeze, No rales Cardiovascular: Regular rate, Regular Rhythm, Normal S1, Normal S2, No murmurs, PMI Normal Abdomen: Bowel Sounds Present, Soft, Non Tender, Non-Distended, No Hepato-splenomegaly Extremities: No clubbing, No cyanosis, No edema Skin: No rashes, No breakdown Lymphatic: No Cervical, Supraclavicular, or Inguinal Adenopathy Neurological: Cranial nerves II-XII grossly intact, Motor Exam 5/5 strength throughout Psych/Mental Status: Normal Affect, Appropriate, Alert and oriented to time, place, person, mood and affect Vital Signs Temp Pulse Resp BP Pulse Ox 98.7 F 90 13 102/69 99 03/13/19 08:27 03/13/19 11:15 03/13/19 11:15 03/13/19 11:15 03/13/19 08:27 Oxygen Delivery Method Room Air Weight: 141 lb 1.533 oz Body Mass Index (BMI) 22.7 Laboratory Tests Past 24 Hrs 03/13/19 03/13/19 03/13/19 08:40 08:50 08:50 WBC 8.5 RBC 3.15 L Hgb 8.4 L Hct 26.5 L MCV 84.1 MCH 26.7 L MCHC 31.7 L RDW Std Deviation 60.9 H RDW Coeff of Liz 20.6 H Plt Count 326 MPV 9.2 Immature Gran % (Auto) 1.100 H Neut % (Auto) 87.8 H Lymph % (Auto) 5.0 L [place] % (Auto) 4.1 Eos % (Auto) 1.3 Baso % (Auto) 0.7 Absolute Neuts (auto) 7.5 Absolute Lymphs (auto) 0.43 L Absolute Nucleated RBC 0.00 Nucleated RBC % 0 Differential Comment COMMENT Sodium 132 L Potassium 3.6 Chloride 99 Carbon Dioxide 27.0 Anion Gap 6 BUN 12 Creatinine 0.62 Estim Creat Clear Calc 98.24 Est GFR (MDRD) Af Amer 130 Est GFR (MDRD) Non-Af 108 BUN/Creatinine Ratio 19.5 Glucose 97 Calcium 8.7 Urine Color Red Urine Clarity Cloudy Urine pH 7.0 Ur Specific [place] 1.010 Urine Protein 500 H Urine Glucose (UA) Normal Urine Ketones 15 H Urine Occult Blood 250 H Urine Nitrite Negative Urine Bilirubin Negative Urine Urobilinogen Normal Ur Leukocyte Esterase Negative Urine RBC > 100 SEEN Urine WBC 0 SEEN Ur Squamous Epith Cells 0 SEEN Urine Bacteria 0 SEEN Urine Mucus 0 SEEN Assessment/Plan All Active Problems (Last Updated 03/13/19 @ 13:25 by Reji Wilder MD) Hematuria (Acute) Anticoagulant long-term use (Acute) This is a 53 years old female patient presented to the emergency room because of what she thought it is vaginal bleeding, found to have gross hematuria, had a history of DVT on Xarelto and history of metastatic ovarian cancer status post surgery, radiation therapy and currently on chemotherapy. #1 acute gross hematuria: Unclear etiology. Patient is on continuous bladder irrigation. She had a stage IV ovarian cancer as mentioned below. Hemoglobin and hematocrit are stable. Vital signs are stable. Patient is on Xarelto. Platelet count are normal. Plan: Admit to PCU, cardiac monitoring, gentle IV fluids for hydration, H&H every 8 hours, pro time and INR, hold Xarelto, check PTT, type and crossmatch 2 units of packed RBCs, transfuse if hemoglobin less than 8 g/dL, repeat CBC and BMP tomorrow morning, urology consult, maintain continuous bladder irrigation. #2 chronic mild vaginal bleeding: According to the patient, this has been going on since she was diagnosed with ovarian cancer. On March 02, 2019, she had CT scan abdomen and pelvis with IV contrast, findings reviewed and revealed necrotic posterior mass to the urinary bladder measuring about 4 x 4.1 x 5.1 cm which repeating slightly increased in size. According to patient's oncologist, patient was referred for surgery but it was declared that it is inoperable. Plan to monitor, transfuse if needed. #3 recent presumed diagnosis of radiation proctitis: Patient underwent colonoscopy 4 days ago that revealed congested mucosa in the rectum, was diagnosed with radiation proctitis and started on mesalamine suppositories. Patient denied rectal pain or hematochezia at this time. Plan to continue mesalamine suppositories. #4 chronic anemia: Secondary to cancer chemotherapy and chronic vaginal bleeding. Hemoglobin has been anywhere from 8 to 11 g/dL. Today's hemoglobin is 8.4 g/dL. Plan to do H&H every 8 hours, transfuse if hemoglobin less than 8 g/dL. #5 stage IV ovarian cancer: With mets, right lung nodule, right pleural effusion and left renal mass as well as peritoneal carcinomatosis. Status post debulking surgery/hysterectomy and bilateral salpingo-oophorectomy, status post radiation treatment and currently on chemotherapy. Last chemotherapy was around 1 week ago. Patient received palliative radiation treatment. #6 history of DVT: Plan to hold Xarelto for now, will check pro time and INR. #7 chronic diastolic CHF: Clinically stable, compensated. Will continue metoprolol and statins. #8 status post mitral and aortic valve replacement with bioprosthetic valves: Clinically stable. She had 2D echocardiogram on January, that revealed ejection fraction of 65%, stable appearing bioprosthetic mitral valve and stable appearing bioprosthetic aortic valve. #9 DVT prophylaxis: SCDs. This note was generated with Dragon dictation software. It may contain incorrect words, spelling, and punctuation that were not noted in checking the note before signing. Code Visit Inpatient E&M: 45217 Init Hosp L3
[2019-03-13] MEDS: traMADol 50 MG Tablet PO (14:29)
[2019-03-13] MEDS: 0.9% Normal Saline 1,000 ML 100 ML IV (14:30)
[2019-03-13 14:33] LABS: Hematocrit 26.5 % (37-47); Hemoglobin 8.5 g/dL (12.0-15.0)
[2019-03-13 14:43] LABS: International Normalized Ratio 1.9; Prothrombin Time (Protime)PT. 21.6 SECONDS (11.7-14.9)
[2019-03-13 14:44] LABS: Partial Thromboplast Time 52.2 Seconds (24.1-36.2)
--- NOTE | 2019-03-13 15:48 | CON.PCM_ITS ---
Problem List (1) Gross hematuria Status: Acute Reason for Consult Date of Consultation: 03/13/19 Reason for Consultation: Gross hematuria history of cervical cancer and radiation in the past History of Present Illness: The patient is a 53 year old female being treated for cervical cancer presented to the hospital with bleeding at first initially thought it was vaginal bleeding but they put a catheter in and she had bright red blood clots in the urine currently has a catheter and on continuous bladder irrigation a few tiny clots in the irrigating but still bloody she is still on her blood thinner she took her medication today so no plan to do any intervention until the blood thinner wears off within 48 hours. For now just continue with bladder irrigation she had a recent CAT scan about 2 weeks ago which I will review Past Medical History Past Medical History (Chronic Problems): Chronic Problems (Last Updated 03/13/19 @ 13:25 by Reji Wilder MD) DVT (deep venous thrombosis) (Chronic) Left adrenal mass (Chronic) C. difficile diarrhea (Chronic) Premature atrial contractions (Chronic) First degree AV block (Chronic) Rheumatic aortic stenosis with regurgitation (Chronic) H/O aortic valve replacement with tissue graft (Chronic ~04/08/17) 21mm Trifecta Valve 04/08/17 History of mitral valve replacement with tissue graft (Chronic ~04/08/17) 29mm Biocor Valve 04/08/17 Chronic diastolic (congestive) heart failure (Chronic) Rheumatic mitral stenosis with regurgitation (Chronic) Hyperlipidemia (Chronic) Ovarian cancer (Chronic) Peritoneal carcinomatosis (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) Iron deficiency anemia (Chronic) Anemia (Chronic) Medical History: Medical History (Last Updated 03/13/19 @ 13:25 by Reji Wilder MD) Premature atrial contractions (Chronic) I49.1 First degree AV block (Chronic) I44.0 Rheumatic aortic stenosis with regurgitation (Chronic) I06.2 Chronic diastolic (congestive) heart failure (Chronic) I50.32 Rheumatic mitral stenosis with regurgitation (Chronic) I05.2 Hyperlipidemia (Chronic) E78.5 Ovarian cancer (Chronic) C56.9 Peritoneal carcinomatosis (Chronic) C78.6, C80.1 Regional lymph node metastasis present (Chronic) C77.9 Iron deficiency anemia (Chronic) D50.9 Anemia (Chronic) D64.9 Psoriasis L40.9 Breathing difficulty R06.89 Rheumatic fever I00 Alvarez-Mu syndrome (Inactive) L51.1 Due to Bactrim, does not have complete sulfa allergy, can tolerate lasix Allergies sulfamethoxazole [From Bactrim] Allergy (Severe, Verified 03/13/19 08:26) Other JOHNATHON LAGOS'S SYNDRONE trimethoprim [From Bactrim] Allergy (Severe, Verified 03/13/19 08:26) Other JOHNATHON LAGOS'S SYNDRONE ampicillin Adverse Reaction (Severe, Verified 03/13/19 08:26) Rash gentamicin Adverse Reaction (Severe, Verified 03/13/19 08:26) Rash Home Medications: Ambulatory Orders Medication Instructions Recorded traMADol [Ultram] 50 mg PO DAILY PRN 10/02/17 B-complex with vitamin C capsule 1 cap PO DAILY 07/01/18 acetaminophen 325 mg tablet 500 mg PO BID PRN tab 07/01/18 loratadine 10 mg tablet 10 mg PO PRN PRN tab 07/01/18 Calcium Carbonate/Vitamin D3 600 mg PO BID 11/05/18 [Calcium 600 + Vit D Tablet] rosuvastatin 40 mg tablet 40 mg PO DAILY #90 tab 01/16/19 metoprolol succinate ER 25 mg 25 mg PO DAILY #90 tab 01/31/19 tablet,extended release 24 hr Doxil 0 mg IV QMONTH 03/06/19 Lansoprazole 15 mg PO DAILY 03/06/19 Mesalamine 1 g [place] BID 03/13/19 Ondansetron HCl [Zofran] 4 mg PO PRN PRN 03/13/19 Rivaroxaban [Xarelto] 0.5 tab PO DAILY 03/13/19 Surgical History: Surgical History (Last Reviewed 03/06/19 @ 08:15 by Marlene Vazquez) H/O aortic valve replacement with tissue graft (Chronic) Onset Date: ~04/08/17 Z95.4 21mm Trifecta Valve 04/08/17 History of mitral valve replacement with tissue graft (Chronic) Onset Date: ~04/08/17 Z95.4 29mm Biocor Valve 04/08/17 History of left cataract surgery Z98.February History of right cataract surgery Z98.41 12-26-18 s/p Insertion vascular port Onset Date: ~09/19/17 H/O hysterectomy with oophorectomy Surgical History: hysterectomy, - - Mitral and aortic valve replacement with bioprosthetic valve. 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 Lives: Spouse/ Significant Other Smoking Status: Former smoker Alcohol: None Drugs: None - *Family History Maternal Family History: Family History (Last Reviewed 03/06/19 @ 08:15 by Marlene Vazquez) Mother Cancer Grandmother Diabetes Grandmother Heart disease Paternal Family History: Family History (Last Reviewed 03/06/19 @ 08:15 by Marlene Vazquez) Mother Cancer Grandmother Diabetes Grandmother Heart disease Review of Systems Constitutional: Denies: Chills, Fever, Weight Change HEENT: Denies: Head Aches, Sinus Congestion, Sinus Drainage Cardiovascular: Denies: Chest Pain, Palpitations Respiratory: Denies: Cough, Shortness of breath at rest, Sputum production Gastrointestinal: Denies: Abdominal Pain, Nausea, Vomiting Genitourinary: Reports: Hematuria Musculoskeletal: Denies: Joint Pain, Joint Tenderness Skin: Denies: Rash, Wounds Neurological: Denies: Numbness, Tingling, Focal weakness Psychiatric: Denies: Anxiety, Depression, Homicidal Ideations, Suicidal Ideations Hematologic/ Lymphatic: Denies: Easy Bruising, Easy Bleeding Physical Exam - Physical Exam Vital Signs Temp 98.3 F 03/13/19 13:40 Pulse 72 03/13/19 14:22 Resp 18 03/13/19 13:40 BP 100/47 L 03/13/19 13:40 Pulse Ox 99 03/13/19 14:45 Intake & Output 03/11/19 03/12/19 03/13/19 23:59 23:59 23:59 Weight: 62.7 kg General: Alert, Oriented x3 HEENT: Atraumatic Oral: Moist Mucosa Neck: Supple Lungs: Normal air movement Cardiovascular: Regular Rhythm Abdomen: Soft Rectal: Exam deferred Laboratory Tests Past 24 Hrs 03/13/19 03/13/19 03/13/19 08:40 08:50 08:50 WBC 8.5 RBC 3.15 L Hgb 8.4 L Hct 26.5 L MCV 84.1 MCH 26.7 L MCHC 31.7 L RDW Std Deviation 60.9 H RDW Coeff of Liz 20.6 H Plt Count 326 MPV 9.2 Immature Gran % (Auto) 1.100 H Neut % (Auto) 87.8 H Lymph % (Auto) 5.0 L [place] % (Auto) 4.1 Eos % (Auto) 1.3 Baso % (Auto) 0.7 Absolute Neuts (auto) 7.5 Absolute Lymphs (auto) 0.43 L Absolute Nucleated RBC 0.00 Nucleated RBC % 0 Differential Comment COMMENT PT INR APTT Sodium 132 L Potassium 3.6 Chloride 99 Carbon Dioxide 27.0 Anion Gap 6 BUN 12 Creatinine 0.62 Estim Creat Clear Calc 98.24 Est GFR (MDRD) Af Amer 130 Est GFR (MDRD) Non-Af 108 BUN/Creatinine Ratio 19.5 Glucose 97 Calcium 8.7 Urine Color Red Urine Clarity Cloudy Urine pH 7.0 Ur Specific [place] 1.010 Urine Protein 500 H Urine Glucose (UA) Normal Urine Ketones 15 H Urine Occult Blood 250 H Urine Nitrite Negative Urine Bilirubin Negative Urine Urobilinogen Normal Ur Leukocyte Esterase Negative Urine RBC > 100 SEEN Urine WBC 0 SEEN Ur Squamous Epith Cells 0 SEEN Urine Bacteria 0 SEEN Urine Mucus 0 SEEN Blood Type Antibody Screen Crossmatch 03/13/19 03/13/19 03/13/19 14:18 14:18 14:18 WBC RBC Hgb 8.5 L Hct 26.5 L MCV MCH MCHC RDW Std Deviation RDW Coeff of Liz Plt Count MPV Immature Gran % (Auto) Neut % (Auto) Lymph % (Auto) [place] % (Auto) Eos % (Auto) Baso % (Auto) Absolute Neuts (auto) Absolute Lymphs (auto) Absolute Nucleated RBC Nucleated RBC % Differential Comment PT 21.6 H INR 1.9 APTT 52.2 H Sodium Potassium Chloride Carbon Dioxide Anion Gap BUN Creatinine Estim Creat Clear Calc Est GFR (MDRD) Af Amer Est GFR (MDRD) Non-Af BUN/Creatinine Ratio Glucose Calcium Urine Color Urine Clarity Urine pH Ur Specific [place] Urine Protein Urine Glucose (UA) Urine Ketones Urine Occult Blood Urine Nitrite Urine Bilirubin Urine Urobilinogen Ur Leukocyte Esterase Urine RBC Urine WBC Ur Squamous Epith Cells Urine Bacteria Urine Mucus Blood Type Pending Antibody Screen Pending Crossmatch See Detail Assessment/Plan All Active Problems (Last Updated 03/13/19 @ 13:25 by Reji Wilder MD) Gross hematuria (Acute) Hematuria (Acute) Anticoagulant long-term use (Acute) 53-year-old female on blood thinner Xarelto with a history of cervical cancer treated with radiation in the past she is been reported to have radiation proctitis. Now presents with bleeding from the bladder differential diagnosis was reviewed with the patient including bladder mass, bladder cancer, infection, and radiation cystitis of the bladder. We will continue with bladder irrigation to keep the urine clear keep flowing with this will let the Xarelto anticoagulant wear off. Probably plan for intervention on Saturday if the bleeding has not stopped by then. Call me with questions.
[2019-03-13] MEDS: Morphine 2 MG/ML Syringe IV ×2 (16:50→20:32)
[2019-03-14] VITALS (24 sets, daily range): BP systolic 82–99; BP diastolic 43–55; PULSE 70–95; RESP 16–20; TEMP 36.8–38.1; O2SAT 92–100
[2019-03-14] MEDS: 0.9% Normal Saline 1,000 ML 75 ML IV ×2 (03:03→22:18)
[2019-03-14] MEDS: traMADol 50 MG Tablet PO (03:33)
--- NOTE | 2019-03-14 03:33 | NURSING ---
This RN gave report to RN taking over care.
[2019-03-14] MEDS: 0.9% NaCl VAD Flush IV ×2 (05:18→05:20)
[2019-03-14 05:34] LABS: Absolute Lymphocyte Count 0.43 X10^3/uL (0.83-4.51); Absolute Neutrophil Count 6.2 X10^3/uL (2.0-7.7); Basophil# 0.04 X10^3/uL; Basophil% 0.6 % (0-1); Eosinophil# 0.13 X10^3/uL; Eosinophils% 1.8 % (0-5); Hematocrit 20.6 % (37-47); Hemoglobin 6.5 g/dL (12.0-15.0); Lymphocyte # 0.43 X10^3/ul (4.0); Mean Corp Hgb Conc 31.6 g/dL (32-36); Mean Corpuscular Hgb 26.5 pg (27.0-32.0); Mean Corpuscular Volume 84.1 fL (81-99); Mean Platelet Vol. 9.2 fl (6.2-12.0); Monocyte# 0.32 X10^3/uL; Monocyte% 4.4 % (0-10); NRBC Flagged by Analyzer 0 % (0-5); Neutrophil # 6.24 X10^3/uL (2.7-7.7); Neutrophil % 86.4 % (47-70); POSITIVE DIFFERENTIAL YES; POSITIVE MORPHOLOGY YES; Platelet Count 283 K/mm3 (150-450); RBC Distribution Width CV 20.2 % (11.6-14.6); RBC Distribution Width SD 60.3 fl (35.1-43.9); Red Blood Count 2.45 M/mm3 (4.2-5.4); White Blood Count 7.2 K/mm3 (4.4-11.0)
[2019-03-14 05:42] LABS: Differential Indicated SCAN CRITERIA MET
[2019-03-14 05:44] LABS: Anion Gap 7 (5-15); BUN 11 mg/dL (7-18); BUN/Creat Ratio 20.2 RATIO (10-20); Chloride 103 mmol/L (98-107); Creatinine, Serum 0.54 mg/dL (0.55-1.02); EST Glomerular Filtration Rate 124 mL/min (>60); Est Glom Filt Rate - Afr Amer 150 mL/min (>60); Estimated Creatinine Clearance 112.79 ml/min; Glucose 88 mg/dL (74-106); Sodium Level 137 mmol/L (136-145)
[2019-03-14 06:01] LABS: Anisocytosis 2+; Hypochromasia 2+; Polychromasia RARE
--- NOTE | 2019-03-14 08:19 | PCM.CONS.B ---
Problem List (1) Gross hematuria Status: Acute - Consult Date of Consult: 03/14/19 - Reason for Consult Follow-up the consultation, CAT scan reviewed from about 2 weeks ago and patient had really thickened bladder I think she has cystitis or radiation cystitis we will do bladder spasm medication BNO suppositories every 4 hours as needed urine today is clearing up I do not think again a taken to the operating room will let this calm down and stop bleeding spontaneously
--- NOTE | 2019-03-14 08:32 | PN_ITS ---
Patient Problems: Active and Suspected Problems (Last Updated 03/13/19 @ 13:25 by Reji Wilder MD) Gross hematuria (Acute) Hematuria (Acute) Anticoagulant long-term use (Acute) Subjective: Chief complaint: Follow-up after admission for hematuria, developed acute on chronic blood loss anemia. Patient seen and examined. No acute events overnight. She still complaining of lower abdominal discomfort/pressure. Urine is clearing up in the urine bag. She denied vaginal bleeding overnight. He denied dizziness, lightheadedness, palpitation, chest pain or shortness of breath. Her blood pressure is borderline, no tachycardia, afebrile. - Physical Exam General: Alert, Oriented x3, Cooperative, No apparent distress HEENT: Atraumatic, PERRLA, EOMI, Normocephalic Oral: Moist Mucosa, No Gingival or Mucosal Lesions/ Ulcerations Neck: Supple, No JVD, Negative Carotid Bruits, Trachea Midline, Thyroid Normal Size and Texture Lungs: Clear to auscultation, Normal air movement, No rhonchi, No wheeze, No rales Cardiovascular: Regular rate, Regular Rhythm, Normal S1, Normal S2, PMI Normal, Murmur Abdomen: Bowel Sounds Present, Soft, Non Tender, Non-Distended, No Hepato- splenomegaly Extremities: No clubbing, No cyanosis, No edema Skin: No rashes, No breakdown Lymphatic: No Cervical, Supraclavicular, or Inguinal Adenopathy Neurological: Cranial nerves II-XII grossly intact, Neuro grossly intact Psych/Mental Status: Normal Affect, Appropriate, Alert and oriented to time, place, person, mood and affect Vital Signs Temp Pulse Resp BP Pulse Ox 99.6 F H 88 18 85/50 L 100 03/14/19 07:55 03/14/19 07:55 03/14/19 07:55 03/14/19 07:55 03/14/19 07:55 Oxygen Delivery Method Room Air Weight: 138 lb 3.677 oz Body Mass Index (BMI) 22.3 Intake and Output for Last 24 Hours 03/12/19 03/13/19 03/14/19 23:59 23:59 23:59 Intake Total 1151 / 1151 960 / 960 Output Total 865 / 865 Balance 1151 / 1151 95 / 95 Laboratory Tests Past 24 Hrs 03/13/19 03/13/1919 08:40 08:50 08:50 WBC 8.5 RBC 3.15 L Hgb 8.4 L Hct 26.5 L MCV 84.1 MCH 26.7 L MCHC 31.7 L RDW Std Deviation 60.9 H RDW Coeff of Liz 20.6 H Plt Count 326 MPV 9.2 Immature Gran % (Auto) 1.100 H Neut % (Auto) 87.8 H Lymph % (Auto) 5.0 L [place] % (Auto) 4.1 Eos % (Auto) 1.3 Baso % (Auto) 0.7 Absolute Neuts (auto) 7.5 Absolute Lymphs (auto) 0.43 L Absolute Nucleated RBC 0.00 Nucleated RBC % 0 Differential Comment COMMENT Polychromasia Hypochromasia Anisocytosis PT INR APTT Sodium 132 L Potassium 3.6 Chloride 99 Carbon Dioxide 27.0 Anion Gap 6 BUN 12 Creatinine 0.62 Estim Creat Clear Calc 98.24 Est GFR (MDRD) Af Amer 130 Est GFR (MDRD) Non-Af 108 BUN/Creatinine Ratio 19.5 Glucose 97 Calcium 8.7 Urine Color Red Urine Clarity Cloudy Urine pH 7.0 Ur Specific [place] 1.010 Urine Protein 500 H Urine Glucose (UA) Normal Urine Ketones 15 H Urine Occult Blood 250 H Urine Nitrite Negative Urine Bilirubin Negative Urine Urobilinogen Normal Ur Leukocyte Esterase Negative Urine RBC > 100 SEEN Urine WBC 0 SEEN Ur Squamous Epith Cells 0 SEEN Urine Bacteria 0 SEEN Urine Mucus 0 SEEN Blood Type Antibody Screen Antibody Identification Crossmatch 03/13/19 03/13/19 03/13/19 14:18 14:18 14:18 WBC RBC Hgb 8.5 L Hct 26.5 L MCV MCH MCHC RDW Std Deviation RDW Coeff of Liz Plt Count MPV Immature Gran % (Auto) Neut % (Auto) Lymph % (Auto) [place] % (Auto) Eos % (Auto) Baso % (Auto) Absolute Neuts (auto) Absolute Lymphs (auto) Absolute Nucleated RBC Nucleated RBC % Differential Comment Polychromasia Hypochromasia Anisocytosis PT 21.6 H INR 1.9 APTT 52.2 H Sodium Potassium Chloride Carbon Dioxide Anion Gap BUN Creatinine Estim Creat Clear Calc Est GFR (MDRD) Af Amer Est GFR (MDRD) Non-Af BUN/Creatinine Ratio Glucose Calcium Urine Color Urine Clarity Urine pH Ur Specific [place] Urine Protein Urine Glucose (UA) Urine Ketones Urine Occult Blood Urine Nitrite Urine Bilirubin Urine Urobilinogen Ur Leukocyte Esterase Urine RBC Urine WBC Ur Squamous Epith Cells Urine Bacteria Urine Mucus Blood Type O POSITIVE Antibody Screen TNP Antibody Identification Pending Crossmatch See Detail 03/13/19 03/14/19 03/14/19 14:18 04:50 04:50 WBC 7.2 RBC 2.45 L Hgb 6.5 L Hct 20.6 L MCV 84.1 MCH 26.5 L MCHC 31.6 L RDW Std Deviation 60.3 H RDW Coeff of Liz 20.2 H Plt Count 283 MPV 9.2 Immature Gran % (Auto) 0.800 Neut % (Auto) 86.4 H Lymph % (Auto) 6.0 L [place] % (Auto) 4.4 Eos % (Auto) 1.8 Baso % (Auto) 0.6 Absolute Neuts (auto) 6.2 Absolute Lymphs (auto) 0.43 L Absolute Nucleated RBC 0.00 Nucleated RBC % 0 Differential Comment Polychromasia RARE Hypochromasia 2+ Anisocytosis 2+ PT INR APTT Sodium 137 Potassium 4.0 Chloride 103 Carbon Dioxide 27.0 Anion Gap 7 BUN 11 Creatinine 0.54 L Estim Creat Clear Calc 112.79 Est GFR (MDRD) Af Amer 150 Est GFR (MDRD) Non-Af 124 BUN/Creatinine Ratio 20.2 H Glucose 88 Calcium 8.0 L Urine Color Urine Clarity Urine pH Ur Specific [place] Urine Protein Urine Glucose (UA) Urine Ketones Urine Occult Blood Urine Nitrite Urine Bilirubin Urine Urobilinogen Ur Leukocyte Esterase Urine RBC Urine WBC Ur Squamous Epith Cells Urine Bacteria Urine Mucus Blood Type Antibody Screen NEGATIVE Antibody Identification Crossmatch Medical Necessity - Tobacco Use Smoking Status: Former smoker Assessment/Plan All Active Problems (Last Updated 03/13/19 @ 13:25 by Reji Wilder MD) Gross hematuria (Acute) Hematuria (Acute) Anticoagulant long-term use (Acute) This is a 53 years old female patient presented to the emergency room because of what she thought it is vaginal bleeding, found to have gross hematuria, had a history of DVT on Xarelto and history of metastatic ovarian cancer status post surgery, radiation therapy and currently on chemotherapy. 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 She is on Blake catheter with continuous bladder irrigation. Urine is minimally clearing up. Her blood pressure is borderline, other vital signs are stable. Hemoglobin and hematocrit are trending down. INR is 1.9. Urology consulted, recommended no interventions at this time, started on belladonna alkaloids/opium for bladder spasm. At this time, no plan for any more work-up or interventions. Plan to continue CBI, transfuse blood and FFP. #2 acute on chronic blood loss anemia: Today's hemoglobin is 6.5 grams per deciliter. Baseline hemoglobin around 8 to 11 g/dL. It is secondary to the gross hematuria. She is receiving blood transfusion for 2 units of packed RBCs. Her INR is 1.9, patient has been on Xarelto which was discontinued. Plan to r epeat CBC tomorrow morning, transfuse 1 unit of fresh frozen plasma. #3 chronic mild vaginal bleeding: According to the patient, this has been going on since she was diagnosed with ovarian cancer. On March 02, 2019, she had CT scan abdomen and pelvis with IV contrast, findings reviewed and revealed necrotic posterior mass to the urinary bladder measuring about 4 x 4.1 x 5.1 cm which repeating slightly increased in size. According to patient's oncologist, patient was referred for surgery but it was declared that it is inoperable. Plan as above. #4 recent presumed diagnosis of radiation proctitis: Patient underwent colonoscopy 5 days ago that revealed congested mucosa in the rectum, was diagnosed with radiation proctitis and started on mesalamine suppositories. Patient denied rectal pain or hematochezia at this time. continue mesalamine suppositories. #5 stage IV ovarian cancer: With mets, right lung nodule, right pleural effusion and left renal mass as well as peritoneal carcinomatosis. Status post debulking surgery/hysterectomy and bilateral salpingo-oophorectomy, status post radiation treatment and currently on chemotherapy. Last chemotherapy was around 1 week ago. Patient received palliative radiation treatment. #6 history of DVT: Xarelto discontinued, INR is 1.9. Plan to give fresh frozen plasma as above. Plan to hold Xarelto for now, will check pro time and INR. #7 chronic diastolic CHF: Clinically stable, compensated. Continue metoprolol and statins. #8 status post mitral and aortic valve replacement with bioprosthetic valves: Clinically stable. She had 2D echocardiogram on January, that revealed ejection fraction of 65%, stable appearing bioprosthetic mitral valve and stable appearing bioprosthetic aortic valve. #9 DVT prophylaxis: SCDs. This note was generated with [employer] software. It may contain incorrect words, spelling, and punctuation that were not noted in checking the note before signing. Code Visit Inpatient E&M: 38770 Subs Hosp L3
[2019-03-14] MEDS: Pantoprazole Sodium 20 MG Tablet PO (09:21)
[2019-03-14] MEDS: Acetaminophen 325 MG Tablet 650 MG PO (14:54)
--- NOTE | 2019-03-14 15:10 | CASEMGMT ---
RN CM Assessment Introduced role of RN CM to patient and patient father in law Nash at bedside.? Patient is alert, oriented and able?to participate in RN CM Assessment. ?Care providers, pharmacy, and demographics verified. Presentation: H/o Total Hysterectomy x2.5 yrs ago for Ovarian CA, still has tumors present that Cont to bleed on Xarelto for Mechanical Cardiac Valve, Con't IV Chemo. C/o cont not able to urinate. Admit Dx: Gross Hematuria, Pelvic Pain, on Xarelto, h/o Ovarian CA Re-Admit: No Barriers/Issues: None PCP: Frankie Tyson Specialists: Onc- Dr Harrison, Manager Landscape- Dr Broussard in [place], Cardio- Dr Pool Preferred Pharmacy: [email or web address] Insurance: [employer] Rx Benefit:?Yes LNOK: - Alexis Simmons LW/HPOA: States has both, HPOA- Alexis Simmons, Alternative- Father in law Nash Simmons Living Arrangements:? Lives with in a SS Home, 2-3 steps to enter ADL?s: Independent with ambulation and ADLs Transportation: - Patient states that she has had Cataracts recently. or Father in law Nash to transport upon DC DME: None HHC: None SNF: None Goal: Home, does not think will have any needs. Denies questions/concerns/issues with DC Planning at this time. Aware CM remains available for any emerging needs. DC PLAN: Home with no anticipated needs identified at this time. GEOVANNI Stafford
[2019-03-14] MEDS: Atorvastatin Calcium 80 MG Tablet PO (22:04)
[2019-03-15] VITALS (10 sets, daily range): BP systolic 91–100; BP diastolic 41–61; PULSE 80–89; RESP 16–18; TEMP 36.9–37.9; O2SAT 91–100
[2019-03-15] MEDS: 0.9% NaCl VAD Flush IV (06:08)
[2019-03-15 06:16] LABS: Absolute Lymphocyte Count 0.32 X10^3/uL (0.83-4.51); Absolute Neutrophil Count 7.2 X10^3/uL (2.0-7.7); Basophil# 0.03 X10^3/uL; Basophil% 0.4 % (0-1); Eosinophil# 0.16 X10^3/uL; Hematocrit 24.8 % (37-47); Hemoglobin 8.1 g/dL (12.0-15.0); Lymphocyte # 0.32 X10^3/ul (4.0); Lymphocyte % 3.9 % (19-41); Mean Corp Hgb Conc 32.7 g/dL (32-36); Mean Corpuscular Hgb 28.1 pg (27.0-32.0); Mean Corpuscular Volume 86.1 fL (81-99); Monocyte# 0.37 X10^3/uL; Monocyte% 4.5 % (0-10); NRBC Flagged by Analyzer 0 % (0-5); Neutrophil # 7.22 X10^3/uL (2.7-7.7); Neutrophil % 88.5 % (47-70); POSITIVE DIFFERENTIAL YES; Platelet Count 229 K/mm3 (150-450); RBC Distribution Width SD 58.4 fl (35.1-43.9); Red Blood Count 2.88 M/mm3 (4.2-5.4); White Blood Count 8.2 K/mm3 (4.4-11.0)
[2019-03-15 06:22] LABS: International Normalized Ratio 1.4; Prothrombin Time (Protime)PT. 17.4 SECONDS (11.7-14.9)
[2019-03-15 06:38] LABS: Differential Indicated SCAN CRITERIA MET
[2019-03-15 06:52] LABS: Differential Comment SCANNED; Hypochromasia 2+; Macrocytosis 1+
--- NOTE | 2019-03-15 08:24 | PCM.PROGNOTE ---
Patient Problems: Active and Suspected Problems (Last Updated 03/13/19 @ 13:25 by Reji Wilder MD) Gross hematuria (Acute) Hematuria (Acute) Anticoagulant long-term use (Acute) Subjective: Chief complaint: Follow-up after admission for hematuria, developed acute on chronic blood loss anemia. Patient seen and examined. No acute events overnight. Suprapubic pain is getting better but still there. Today, urine in the urine bag is more dark and almost sugye blood. She denies fever or chills. Blood pressure is borderline, other vital signs are stable. - Physical Exam General: Alert, Oriented x3, Cooperative, No apparent distress HEENT: Atraumatic, PERRLA, EOMI, Normocephalic Oral: Moist Mucosa, No Gingival or Mucosal Lesions/ Ulcerations Neck: Supple, No JVD, Negative Carotid Bruits, Trachea Midline, Thyroid Normal Size and Texture Lungs: Clear to auscultation, Normal air movement, No rhonchi, No wheeze, No rales, Diminished Cardiovascular: Regular rate, Regular Rhythm, Normal S1, Normal S2, PMI Normal, Murmur Abdomen: Bowel Sounds Present, Soft, Non Tender, Non-Distended, No Hepato-splenomegaly Extremities: No clubbing, No cyanosis, No edema Skin: No rashes, No breakdown Lymphatic: No Cervical, Supraclavicular, or Inguinal Adenopathy Neurological: Cranial nerves II-XII grossly intact, Neuro grossly intact Psych/Mental Status: Normal Affect, Appropriate, Alert and oriented to time, place, person, mood and affect Vital Signs Temp Pulse Resp BP Pulse Ox 99.4 F H 82 18 91/41 L 91 03/15/19 05:45 03/15/19 07:12 03/15/19 05:45 03/15/19 05:45 03/15/19 06:42 Oxygen Delivery Method Room Air Weight: 140 lb 6.951 oz Body Mass Index (BMI) 22.3 Intake and Output for Last 24 Hours 03/13/19 03/14/19 03/15/19 23:59 23:59 23:59 Intake Total 1151 / 1151 2814 / 2814 424 / 424 Output Total 2530 / 2530 250 / 250 Balance 1151 / 1151 284 / 284 174 / 174 Laboratory Tests Past 24 Hrs 03/13/19 03/13/19 03/13/19 14:18 14:18 14:18 WBC RBC Hgb Hct MCV MCH MCHC RDW Std Deviation RDW Coeff of Liz Plt Count MPV Immature Gran % (Auto) Neut % (Auto) Lymph % (Auto) [place] % (Auto) Eos % (Auto) Baso % (Auto) Absolute Neuts (auto) Absolute Lymphs (auto) Absolute Nucleated RBC Nucleated RBC % Differential Comment Hypochromasia Macrocytosis PT INR Blood Type O POSITIVE Antibody Screen POSITIVE H Cancelled Antibody Identification ANTI-Fya Antigen Identification Fya ANTIGEN - NEGATIVE Crossmatch See Detail 03/13/19 03/13/19 03/15/19 14:18 14:18 06:07 WBC 8.2 RBC 2.88 L Hgb 8.1 L Hct 24.8 L MCV 86.1 MCH 28.1 MCHC 32.7 RDW Std Deviation 58.4 H RDW Coeff of Liz 19.0 H Plt Count 229 MPV 9.0 Immature Gran % (Auto) 0.700 Neut % (Auto) 88.5 H Lymph % (Auto) 3.9 L [place] % (Auto) 4.5 Eos % (Auto) 2.0 Baso % (Auto) 0.4 Absolute Neuts (auto) 7.2 Absolute Lymphs (auto) 0.32 L Absolute Nucleated RBC 0.00 Nucleated RBC % 0 Differential Comment SCANNED Hypochromasia 2+ Macrocytosis 1+ PT INR Blood Type Antibody Screen Antibody Identification Pending Not Reportable Antigen Identification Crossmatch 03/15/19 06:07 WBC RBC Hgb Hct MCV MCH MCHC RDW Std Deviation RDW Coeff of Liz Plt Count MPV Immature Gran % (Auto) Neut % (Auto) Lymph % (Auto) [place] % (Auto) Eos % (Auto) Baso % (Auto) Absolute Neuts (auto) Absolute Lymphs (auto) Absolute Nucleated RBC Nucleated RBC % Differential Comment Hypochromasia Macrocytosis PT 17.4 H INR 1.4 Blood Type Antibody Screen Antibody Identification Antigen Identification Crossmatch Medical Necessity - Tobacco Use Smoking Status: Former smoker Assessment/Plan All Active Problems (Last Updated 03/13/19 @ 13:25 by Reji Wilder MD) Gross hematuria (Acute) Hematuria (Acute) Anticoagulant long-term use (Acute) This is a 53 years old female patient presented to the emergency room because of what she thought it is vaginal bleeding, found to have gross hematuria, had a history of DVT on Xarelto and history of metastatic ovarian cancer status post surgery, radiation therapy and currently on chemotherapy. 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 Remained on Blake catheter with continuous bladder irrigation. Today, urine is more dark, almost sugey blood. INR is down to 1.4, platelet count remained normal. Hemoglobin and hematocrit improved. Urology consulted, recommended no interventions at this time, started on belladonna alkaloids/opium for bladder spasm. Plan to continue same treatment, awaiting urology recommendations since the urine is not clearing up and it is becoming more bloody #2 acute on chronic blood loss anemia: Today's hemoglobin is 8.1 g/dL after she received 2 units of packed RBCs.. Baseline hemoglobin around 8 to 11 g/dL. It is secondary to the gross hematuria. She received 1 unit of fresh frozen plasma, INR is down to 1.4. Plan to repeat H&H later today, transfuse if hemoglobin less than 8 g/dL. #3 chronic mild vaginal bleeding: Stable, no vaginal bleeding so far. According to the patient, this has been going on since she was diagnosed with ovarian cancer. On March 02, 2019, she had CT scan abdomen and pelvis with IV contrast, findings reviewed and revealed necrotic posterior mass to the urinary bladder measuring about 4 x 4.1 x 5.1 cm which repeating slightly increased in size. According to patient's oncologist, patient was referred for surgery but it was declared that it is inoperable. Plan as above. #4 recent presumed diagnosis of radiation proctitis: Denies rectal pain, bloody diarrhea or abdominal pain. Patient underwent colonoscopy 5 days ago that revealed congested mucosa in the rectum, was diagnosed with radiation proctitis and started on mesalamine suppositories. Patient denied rectal pain or hematochezia at this time. continue mesalamine suppositories. #5 stage IV ovarian cancer: With mets, right lung nodule, right pleural effusion and left renal mass as well as peritoneal carcinomatosis. Status post debulking surgery/hysterectomy and bilateral salpingo-oophorectomy, status post radiation treatment and currently on chemotherapy. Last chemotherapy was around 1 week ago. Patient received palliative radiation treatment. #6 history of DVT: Xarelto discontinued, INR is down to 1.4 after FFP. #7 chronic diastolic CHF: Clinically stable, compensated. Continue metoprolol and statins. #8 status post mitral and aortic valve replacement with bioprosthetic valves: Clinically stable. She had 2D echocardiogram on January, that revealed ejection fraction of 65%, stable appearing bioprosthetic mitral valve and stable appearing bioprosthetic aortic valve. #9 DVT prophylaxis: SCDs. This note was generated with [employer] dictation software. It may contain incorrect words, spelling, and punctuation that were not noted in checking the note before signing. Code Visit Inpatient E&M: 61024 Subs Hosp L2
[2019-03-15] MEDS: Pantoprazole Sodium 20 MG Tablet PO (09:31)
[2019-03-15] MEDS: Acetaminophen 325 MG Tablet 650 MG PO ×2 (11:10→17:20)
[2019-03-15] MEDS: 0.9% Normal Saline 1,000 ML 75 ML IV (11:42)
[2019-03-15] MEDS: traMADol 50 MG Tablet PO (13:16)
[2019-03-15 16:02] LABS: Hemoglobin 8.2 g/dL (12.0-15.0)
[2019-03-15] MEDS: Atorvastatin Calcium 80 MG Tablet PO (22:45)
[2019-03-16] VITALS (22 sets, daily range): BP systolic 92–118; BP diastolic 45–64; PULSE 79–110; RESP 16–18; TEMP 36.7–38; O2SAT 91–100; BMI 22.6
--- NOTE | 2019-03-16 | BLA_PTH ---
PATIENT: JEREL ZELAYA LOC: PCU U#:[id number] AGE/SX: 53/F ROOM: [facility] RE03/13/[address]: Dr. Reji Wilder MD : 1965 BED: 1 DIS: 03/17/2019 SPEC #: [id number] RECD: 03/17/19 12:41 STATUS: LIOR OSWALDO #: [id number] TERRENCE: 03/16/19 00:[address]: Reji Wilder DEPT: SURGICAL PATHOLOGY RECD BY: Boyd Mei ENTERED: 03/17/19 12:41 SP TYPE: BLADDER BX OTHR DR: MD Dr. Triston Ortega MD Tissues: Urinary bladder, NOS Procedures: Surgery Specimen Level IV HEADER OPERATION: Cysto, evacuation clots, cautery PRE-OP DIAGNOSIS: Gross hematuria TISSUE SUBMITTED: Bladder MICROSCOPIC DIAGNOSIS Bladder, biopsy: A piece of bladder wall (mucosa including detrusor muscle) mild acute and chronic inflammation and blood clots. Negative for malignancy. See Comment. ELIZABETH:dave 03/18/19 COMMENT The epithelium is completely denuded. Correlation with clinical findings and appropriate follow up are necessary. Case has been reviewed in consultation with Dr. Mascorro who concurs with the above diagnosis. IDC:AM MICROSCOPIC DESCRIPTION Slides are reviewed. GROSS DESCRIPTION Received in fixative is one container labeled with the patient's name and designated bladder. Received is a piece of gregg soft tissue measuring 0.7 x 0.5 x 0.3 cm. The specimen is bisected and submitted entirely in one cassette. ELIZABETH:dave 03/17/19 TC: 5 CPT: 22265
[2019-03-16] MEDS: Acetaminophen 325 MG Tablet 650 MG PO ×3 (00:45→23:53)
[2019-03-16] MEDS: 0.9% Normal Saline 1,000 ML 75 ML IV ×2 (00:46→19:51)
[2019-03-16 05:38] LABS: Absolute Lymphocyte Count 0.29 X10^3/uL (0.83-4.51); Absolute Neutrophil Count 5.3 X10^3/uL (2.0-7.7); Basophil# 0.03 X10^3/uL; Basophil% 0.5 % (0-1); Eosinophil# 0.21 X10^3/uL; Eosinophils% 3.4 % (0-5); Hematocrit 23.6 % (37-47); Hemoglobin 7.7 g/dL (12.0-15.0); Lymphocyte # 0.29 X10^3/ul (4.0); Lymphocyte % 4.7 % (19-41); Mean Corp Hgb Conc 32.6 g/dL (32-36); Mean Corpuscular Hgb 28.3 pg (27.0-32.0); Mean Corpuscular Volume 86.8 fL (81-99); Mean Platelet Vol. 8.5 fl (6.2-12.0); Monocyte# 0.21 X10^3/uL; Monocyte% 3.4 % (0-10); NRBC Flagged by Analyzer 0 % (0-5); Neutrophil # 5.34 X10^3/uL (2.7-7.7); Neutrophil % 87.3 % (47-70); POSITIVE DIFFERENTIAL YES; Platelet Count 199 K/mm3 (150-450); RBC Distribution Width CV 19.7 % (11.6-14.6); RBC Distribution Width SD 61.7 fl (35.1-43.9); Red Blood Count 2.72 M/mm3 (4.2-5.4); White Blood Count 6.1 K/mm3 (4.4-11.0)
[2019-03-16 05:43] LABS: Differential Indicated SCAN CRITERIA MET
[2019-03-16 06:46] LABS: Differential Comment SCANNED
--- NOTE | 2019-03-16 07:27 | PCM.PROGNOTE ---
Patient Problems: Active and Suspected Problems (Last Updated 03/13/19 @ 13:25 by Reji Wilder MD) Gross hematuria (Acute) Hematuria (Acute) Anticoagulant long-term use (Acute) Subjective: still bleeding despite irrigation. - Physical Exam General: Alert, Oriented x3, Cooperative HEENT: Atraumatic, PERRLA, EOMI, Normocephalic Neck: Supple, No JVD, Negative Carotid Bruits Lungs: Clear to auscultation, Normal air movement Cardiovascular: Regular rate, No murmurs Abdomen: Bowel Sounds Present, Soft, Non Tender Extremities: No edema, Capillary Refill Less than 3 Seconds Skin: No rashes, No breakdown Musculoskeletal: No Tenderness to Palpation of Joints or Extremities Neurological: Cranial nerves II-XII grossly intact Psych/Mental Status: Normal Affect, Appropriate Vital Signs Temp Pulse Resp BP Pulse Ox 98.4 F 79 18 92/48 L 91 03/16/19 04:40 03/16/19 06:51 03/16/19 04:40 03/16/19 04:40 03/16/19 07:09 Oxygen Delivery Method Room Air Weight: 63.7 kg Body Mass Index (BMI) 22.3 Intake and Output for Last 24 Hours 03/14/19 03/15/19 03/16/19 23:59 23:59 23:59 Intake Total 2814 / 2814 2937 / 2937 397 / 397 Output Total 2530 / 2530 1450 / 1450 350 / 350 Balance 284 / 284 1487 / 1487 47 / 47 Laboratory Tests Past 24 Hrs 03/13/19 03/15/19 03/16/19 14:18 15:49 05:30 WBC 6.1 RBC 2.72 L Hgb 8.2 L 7.7 L Hct 25.0 L 23.6 L MCV 86.8 MCH 28.3 MCHC 32.6 RDW Std Deviation 61.7 H RDW Coeff of Liz 19.7 H Plt Count 199 MPV 8.5 Immature Gran % (Auto) 0.700 Neut % (Auto) 87.3 H Lymph % (Auto) 4.7 L [place] % (Auto) 3.4 Eos % (Auto) 3.4 Baso % (Auto) 0.5 Absolute Neuts (auto) 5.3 Absolute Lymphs (auto) 0.29 L Absolute Nucleated RBC Pending Nucleated RBC % 0 Differential Comment SCANNED Crossmatch See Detail Medical Necessity - Tobacco Use Smoking Status: Former smoker Assessment/Plan All Active Problems (Last Updated 03/13/19 @ 13:25 by Reji Wilder MD) Gross hematuria (Acute) Hematuria (Acute) Anticoagulant long-term use (Acute) plan to take to surgery today to evacuate blood clots and cauterization of bleeding. discussed with patient.
[2019-03-16] MEDS: traMADol 50 MG Tablet PO (07:43)
--- NOTE | 2019-03-16 08:31 | PCM.PROGNOTE ---
Patient Problems: Active and Suspected Problems (Last Updated 03/13/19 @ 13:25 by Reji Wilder MD) Gross hematuria (Acute) Hematuria (Acute) Anticoagulant long-term use (Acute) Subjective: Chief complaint: Follow-up after admission for hematuria, developed acute on chronic blood loss anemia. Patient seen and examined. No acute events overnight. Still complaining of suprapubic pain but manageable and getting better very slowly. Urine in the urine bag still very dark, red and sugey blood. Her vital signs are stable. - Physical Exam General: Alert, Oriented x3, Cooperative, No apparent distress HEENT: Atraumatic, PERRLA, EOMI, Normocephalic Oral: Moist Mucosa, No Gingival or Mucosal Lesions/ Ulcerations Neck: Supple, No JVD, Negative Carotid Bruits, Trachea Midline, Thyroid Normal Size and Texture Lungs: Clear to auscultation, Normal air movement, No rhonchi, No wheeze, No rales Cardiovascular: Regular rate, Regular Rhythm, Normal S1, Normal S2, PMI Normal, Murmur Abdomen: Bowel Sounds Present, Soft, Non Tender, Non-Distended, No Hepato-splenomegaly Extremities: No clubbing, No cyanosis, No edema Skin: No rashes, No breakdown Lymphatic: No Cervical, Supraclavicular, or Inguinal Adenopathy Neurological: Cranial nerves II-XII grossly intact, Neuro grossly intact Psych/Mental Status: Normal Affect, Appropriate, Alert and oriented to time, place, person, mood and affect Vital Signs Temp Pulse Resp BP Pulse Ox 98.4 F 79 18 92/48 L 91 03/16/19 04:40 03/16/19 06:51 03/16/19 04:40 03/16/19 04:40 03/16/19 07:09 Oxygen Delivery Method Room Air Weight: 140 lb Body Mass Index (BMI) 22.6 Intake and Output for Last 24 Hours 03/14/19 03/15/19 03/16/19 23:59 23:59 23:59 Intake Total 2814 / 2814 2937 / 2937 397 / 397 Output Total 2530 / 2530 1450 / 1450 350 / 350 Balance 284 / 284 1487 / 1487 47 / 47 Laboratory Tests Past 24 Hrs 03/13/19 03/15/19 03/16/19 14:18 15:49 05:30 WBC 6.1 RBC 2.72 L Hgb 8.2 L 7.7 L Hct 25.0 L 23.6 L MCV 86.8 MCH 28.3 MCHC 32.6 RDW Std Deviation 61.7 H RDW Coeff of Liz 19.7 H Plt Count 199 MPV 8.5 Immature Gran % (Auto) 0.700 Neut % (Auto) 87.3 H Lymph % (Auto) 4.7 L [place] % (Auto) 3.4 Eos % (Auto) 3.4 Baso % (Auto) 0.5 Absolute Neuts (auto) 5.3 Absolute Lymphs (auto) 0.29 L Absolute Nucleated RBC Pending Nucleated RBC % 0 Differential Comment SCANNED Crossmatch See Detail Medical Necessity - Tobacco Use Smoking Status: Former smoker Assessment/Plan All Active Problems (Last Updated 03/13/19 @ 13:25 by Reji Wilder MD) Gross hematuria (Acute) Hematuria (Acute) Anticoagulant long-term use (Acute) This is a 53 years old female patient presented to the emergency room because of what she thought it is vaginal bleeding, found to have gross hematuria, had a history of DVT on Xarelto and history of metastatic ovarian cancer status post surgery, radiation therapy and currently on chemotherapy. 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 Urine is still very dark red in the urine bag. CBI discontinued. INR is down to 1.4, platelet count remained normal. Hemoglobin is down to 7.7 g/dL today. Urology on the case, plan for cystoscopy today. #2 acute on chronic blood loss anemia: Today's hemoglobin is 7.7 g/dL, down from 8.1 yesterday. Patient received 2 units of packed RBCs.. Baseline hemoglobin around 8 to 11 g/dL. It is secondary to the gross hematuria. Plan to transfuse another unit of packed RBCs today, repeat H&H today evening and H&H tomorrow morning. #3 chronic mild vaginal bleeding: Stable, no vaginal bleeding so far. According to the patient, this has been going on since she was diagnosed with ovarian cancer. On March 02, 2019, she had CT scan abdomen and pelvis with IV contrast, findings reviewed and revealed necrotic posterior mass to the urinary bladder measuring about 4 x 4.1 x 5.1 cm which repeating slightly increased in size. According to patient's oncologist, patient was referred for surgery but it was declared that it is inoperable. Plan as above. #4 recent presumed diagnosis of radiation proctitis: Denies rectal pain, bloody diarrhea or abdominal pain. Patient underwent colonoscopy last week days ago that revealed congested mucosa in the rectum, was diagnosed with radiation proctitis and started on mesalamine suppositories. At this time, mesalamine suppository held, patient has no complaints stable. #5 stage IV ovarian cancer: With mets, right lung nodule, right pleural effusion and left renal mass as well as peritoneal carcinomatosis. Status post debulking surgery/hysterectomy and bilateral salpingo-oophorectomy, status post radiation treatment and currently on chemotherapy. Last chemotherapy was around 1 week ago. Patient received palliative radiation treatment. #6 history of DVT: Xarelto discontinued, INR is down to 1.4 after FFP. #7 chronic diastolic CHF: Clinically stable, compensated. Continue metoprolol and statins. #8 status post mitral and aortic valve replacement with bioprosthetic valves: Clinically stable. She had 2D echocardiogram on January, that revealed ejection fraction of 65%, stable appearing bioprosthetic mitral valve and stable appearing bioprosthetic aortic valve. #9 DVT prophylaxis: SCDs. This note was generated with [employer] dictation software. It may contain incorrect words, spelling, and punctuation that were not noted in checking the note before signing. Code Visit Inpatient E&M: 53692 Subs Hosp L2
[2019-03-16] MEDS: Pantoprazole Sodium 20 MG Tablet PO (09:45)
--- NOTE | 2019-03-16 10:04 | NURSING ---
This RN called and gave report to SOFIA Foreman in [place].
--- NOTE | 2019-03-16 13:05 | PCM.OPRPT ---
Problem List (1) Gross hematuria Status: Acute Report of Operation Date of Procedure: 03/16/19 Pre-Operative Diagnosis: Cystoscopy evacuation of blood clots and cauterization of bleeding and transurethral resection of bladder wall. Post-Operative Diagnosis: Same Surgery/Procedure Performed:: Cystoscopy evacuation of blood clots cauterization of bleeding transurethral resection of the bladder Description of Surgical Findings:: 53-year-old female taken back to the operating room at the smooth induction of general anesthesia she was grossly contaminated with fecal material from uncontrollable diarrhea we then cleaned her up as best as possible she was prepped and draped in the perineum as best as possible and then went into the bladder with a 26 [place] continuous flow resectoscope immediately there is blood to blood clots in the bladder these were Ellik doubt and then the entire surface of the bladder was all inflamed and red and friable and easily bleeding consistent with radiation cystitis, I took the TUR resectoscope and did a deep biopsy resection of the back midline of the bladder this was handed off as a specimen to rule out carcinoma I then used the resectoscope to cauterize the bladder extensively in the posterior wall to stop the bleeding took about 25 minutes to cauterize the bladder extensively after this was done then no more heavy bleeding she has some minor oozing but a 24 [place] catheter into the bladder with 30 cc balloon and started on continuous bladder irrigation to hopefully get the bleeding to stop. Type of Anesthesia:: General - Admit VTE Documentation VTE Present on Admission: No VTE Mechan Device Prophylaxis: SCD's
[2019-03-16 18:15] LABS: Hematocrit 26.6 % (37-47); Hemoglobin 8.7 g/dL (12.0-15.0)
[2019-03-16] MEDS: Atorvastatin Calcium 80 MG Tablet PO (21:52)
[2019-03-17] VITALS (9 sets, daily range): BP systolic 94–96; BP diastolic 49–51; PULSE 81–93; RESP 18; TEMP 36.9–37.4; O2SAT 94–96
[2019-03-17 05:38] LABS: Hematocrit 24.8 % (37-47); Hemoglobin 8.1 g/dL (12.0-15.0)
--- NOTE | 2019-03-17 07:34 | PCM.PROGNOTE ---
Patient Problems: Active and Suspected Problems (Last Updated 03/13/19 @ 13:25 by Reji Wilder MD) Gross hematuria (Acute) Hematuria (Acute) Anticoagulant long-term use (Acute) Subjective: urine is clear this morning, no bleeding. pt tearful, tired of being in hospital. - Physical Exam General: Alert, Oriented x3, Cooperative HEENT: Atraumatic, PERRLA, EOMI, Normocephalic Neck: Supple, No JVD, Negative Carotid Bruits Lungs: Clear to auscultation, Normal air movement Cardiovascular: Regular rate, No murmurs Abdomen: Bowel Sounds Present, Soft, Non Tender Extremities: No edema, Capillary Refill Less than 3 Seconds Skin: No rashes, No breakdown Musculoskeletal: No Tenderness to Palpation of Joints or Extremities Neurological: Cranial nerves II-XII grossly intact Psych/Mental Status: Normal Affect, Appropriate Vital Signs Temp Pulse Resp BP Pulse Ox 99.4 F H 86 18 96/50 L 94 03/17/19 02:00 03/17/19 06:45 03/17/19 02:00 03/17/19 02:00 03/17/19 07:07 Oxygen Delivery Method Room Air Weight: 63.503 kg Body Mass Index (BMI) 22.6 Intake and Output for Last 24 Hours 03/15/19 03/16/19 03/17/19 23:59 23:59 23:59 Intake Total 2937 / 2937 2587 / 2587 591 / 591 Output Total 1450 / 1450 4050 / 4050 1600 / 1600 Balance 1487 / 1487 -1463 / -1463 -1009 / -1009 Laboratory Tests Past 24 Hrs 03/13/19 03/13/19 03/16/19 14:18 14:18 18:05 Hgb 8.7 L Hct 26.6 L Crossmatch See Detail See Detail 03/17/19 04:50 Hgb 8.1 L Hct 24.8 L Crossmatch Medical Necessity - Tobacco Use Smoking Status: Former smoker Assessment/Plan All Active Problems (Last Updated 03/13/19 @ 13:25 by Reji Wilder MD) Gross hematuria (Acute) Hematuria (Acute) Anticoagulant long-term use (Acute) stop cbi if clear this afternoon d/c rivera and can go home if urine clear.
[2019-03-17] MEDS: 0.9% Normal Saline 1,000 ML 75 ML IV ×2 (07:53→14:19)
[2019-03-17] MEDS: Pantoprazole Sodium 20 MG Tablet PO (09:05)
[2019-03-17] MEDS: Acetaminophen 325 MG Tablet 650 MG PO (09:42)
[2019-03-17] MEDS: Morphine 2 MG/ML Syringe IV (12:56)
--- NOTE | 2019-03-17 15:32 | DCINST_ITS ---
- Discharge Diagnoses Current Active Problems: Current Active and Chronic Problems (Last Updated 03/13/19 @ 13:25 by Reji Wilder MD) Gross hematuria (Acute) Hematuria (Acute) Anticoagulant long-term use (Acute) Anemia (Chronic) You will use the following diet at home:: Regular Your food should be the consistency of: Regular Discharge Activity: Return to Normal Activity Weight Bearing Status: Weight bearing as tolerated Call your doctor if you observe: Fever of 101 or Higher, Inability to urinate, Shortness of breath, Dizziness, Fainting spells, Chest pain, Increased palpitations (irregular heartbeat), Uncontrolled pain Allergies/Adverse Reactions: Allergies sulfamethoxazole [From Bactrim] Allergy (Severe, Verified 03/13/19 08:26) Other [employer]ATH[employer]ONE trimethoprim [From Bactrim] Allergy (Severe, Verified 03/13/19 08:26) Other [employer] ampicillin Adverse Reaction (Severe, Verified 03/13/19 08:26) Rash gentamicin Adverse Reaction (Severe, Verified 03/13/19 08:26) Rash Medications to take at Discharge traMADol [Ultram] 50 mg PO DAILY PRN 10/02/17 B-complex with vitamin C capsule 1 cap PO DAILY 07/01/18 acetaminophen 325 mg tablet 500 mg PO BID PRN tab 07/01/18 loratadine 10 mg tablet 10 mg PO PRN PRN tab 07/01/18 Calcium Carbonate/Vitamin D3 [Calcium 600 + Vit D Tablet] 600 mg PO BID 11/05/18 rosuvastatin 40 mg tablet 40 mg PO DAILY #90 tab 01/16/19 metoprolol succinate ER 25 mg tablet,extended release 24 hr 25 mg PO DAILY #90 tab 01/31/19 Doxil 0 mg IV QMONTH 03/06/19 Lansoprazole 15 mg PO DAILY 03/06/19 Mesalamine 1 g HI BID 03/13/19 Ondansetron HCl [Zofran] 4 mg PO PRN PRN 03/13/19 Ferrous Sulfate 325 mg PO BIDCM #90 tab 03/17/19 The following prescriptions were given: Ferrous Sulfate 325 mg PO BIDCM #90 tab Transmission Status: Pending to [facility] Primary Care Physician: Frankie Tyson MD [Primary Care Provider] - Please follow up with your Primary Care Physician in: 1 week. Test Results: Test results from this visit will be discussed in further detail at your follow- up appointment, if applicable. Please Follow Up With: Ming Harrison MD When: as scheduled.
--- NOTE | 2019-03-17 15:33 | PCM.DC.SUM ---
Discharge Date and Diagnosis - Problem List Patient Problems: Active and Suspected Problems (Last Updated 03/13/19 @ 13:25 by Reji Wilder MD) Gross hematuria (Acute) Hematuria (Acute) Anticoagulant long-term use (Acute) Date of Admission: 03/13/19 Date of Discharge: 03/17/19 - Primary Discharge Diagnosis Active and Suspected Problems (Last Updated 03/13/19 @ 13:25 by Reji Wilder MD) #1 gross extensive hematuria, presumed to be due to radiation cystitis/thick urinary bladder wall. #2 acute on chronic blood loss anemia. #3 chronic mild vaginal bleeding, no active bleeding this admission. - Secondary Discharge Diagnosis Chronic Problems (Last Updated 03/13/19 @ 13:25 by Reji Wilder MD) DVT (deep venous thrombosis) (Chronic) Left adrenal mass (Chronic) C. difficile diarrhea (Chronic) Premature atrial contractions (Chronic) First degree AV block (Chronic) Rheumatic aortic stenosis with regurgitation (Chronic) H/O aortic valve replacement with tissue graft (Chronic ~04/08/17) 21mm Trifecta Valve 04/08/17 History of mitral valve replacement with tissue graft (Chronic ~04/08/17) 29mm Biocor Valve 04/08/17 Chronic diastolic (congestive) heart failure (Chronic) Rheumatic mitral stenosis with regurgitation (Chronic) Hyperlipidemia (Chronic) Ovarian cancer (Chronic) Peritoneal carcinomatosis (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) Iron deficiency anemia (Chronic) Anemia (Chronic) Hospital Course and Treatment Dr. Love, urology. Operations: None Procedures: - - Cystoscopy, evacuation of blood clots, cauterization of bleeding sites, transurethral resection of bladder wall. Summary of Care Provided: Patient seen and examined on the day of discharge and appeared to be stable to be discharged home. Urine in the urine bag is purely clear, no more blood. Urology recommended to take the Blake catheter out this afternoon which was taken out. Afterwards, patient urinated and she had pink-colored urine. Her vital signs are stable. Confirmed with urology that patient can be discharged home today. The patient is a 53 year old F presented to the emergency room because of what she was thinking that it is vaginal bleeding because she has history of chronic mild vaginal bleeding since she was diagnosed with ovarian cancer but determined to be gross hematuria in context of using Xarelto for history of DVT. Patient was admitted to the floor and started on Blake catheter and continuous bladder irrigation. Initially, conservative approach preferred by urology and CBI continued. Patient continued to have gross suegy hematuria in spite of continuous bladder irrigation. Urology decided to go for OR and patient underwent cystoscopy, evacuation of blood clots, cauterization of the bleeding sites and transurethral resection of bladder wall. On cystoscopy, bladder wall was all inflamed, red and friable with easy bleeding consistent with radiation cystitis. Patient did have acute on chronic blood loss anemia. Her baseline hemoglobin has been around 8 to 11 g/dL. During this hospital stay, hemoglobin came down to 6.5 g/dL. Patient received a total of 2 units of packed RBCs. Also, she received 1 unit of fresh frozen plasma because she was on Xarelto and her INR was 1.9. After transfusion, hemoglobin on discharge was 8.1 g/dL. INR came down to 1.4 after fresh frozen plasma. On the day of discharge, Blake catheter taken out because the urine was purely clear and patient was able to urinate with pink-colored urine. We contacted the urologist and he agreed to discharge patient today and follow-up with oncology in 2 weeks. Patient discharged home in a stable medical condition, Xarelto discontinued, discharged on iron supplement, maintained on her previous home medications without any changes, plan to follow-up with PCP 1 week and follow-up with oncology in 2 weeks. Bladder biopsy was done and it was pending at the time of discharge. Patient Problems: Active and Suspected Problems (Last Updated 03/13/19 @ 13:25 by Reji Wilder MD) Gross hematuria (Acute) Hematuria (Acute) Anticoagulant long-term use (Acute) - Physical Exam General: Alert, Oriented x3, Cooperative, No apparent distress HEENT: Atraumatic, PERRLA, EOMI, Normocephalic Oral: Moist Mucosa, No Gingival or Mucosal Lesions/ Ulcerations Neck: Supple, No JVD, Negative Carotid Bruits, Trachea Midline, Thyroid Normal Size and Texture Lungs: Clear to auscultation, Normal air movement, No rhonchi, No wheeze, No rales Cardiovascular: Regular rate, Regular Rhythm, Normal S1, Normal S2, Murmur Abdomen: Bowel Sounds Present, Soft, Non Tender, Non-Distended, No Hepato-splenomegaly Extremities: No clubbing, No cyanosis, No edema Skin: No rashes, No breakdown Lymphatic: No Cervical, Supraclavicular, or Inguinal Adenopathy Neurological: Cranial nerves II-XII grossly intact, Neuro grossly intact Psych/Mental Status: Normal Affect, Appropriate Vital Signs Temp Pulse Resp BP Pulse Ox 98.4 F 81 18 94/49 L 96 03/17/19 13:28 03/17/19 14:47 03/17/19 13:28 03/17/19 13:28 03/17/19 13:28 Oxygen Delivery Method Room Air Weight: 140 lb Body Mass Index (BMI) 22.6 Intake and Output for Last 24 Hours 03/15/19 03/16/19 03/17/19 23:59 23:59 23:59 Intake Total 2937 / 2937 2587 / 2587 711 / 711 Output Total 1450 / 1450 4050 / 4050 4775 / 4775 Balance 1487 / 1487 -1463 / -1463 -4064 / -4064 Laboratory Tests Past 24 Hrs 03/16/19 03/17/19 18:05 04:50 Hgb 8.7 L 8.1 L Hct 26.6 L 24.8 L Discharge Activity: Return to Normal Activity Weight Bearing Status: Weight bearing as tolerated Call your doctor if you observe: Fever of 101 or Higher, Inability to urinate, Shortness of breath, Dizziness, Fainting spells, Chest pain, Increased palpitations (irregular heartbeat), Uncontrolled pain Home Medications: Medications to take at Discharge traMADol [Ultram] 50 mg PO DAILY PRN 10/02/17 B-complex with vitamin C capsule 1 cap PO DAILY 07/01/18 acetaminophen 325 mg tablet 500 mg PO BID PRN tab 07/01/18 loratadine 10 mg tablet 10 mg PO PRN PRN tab 07/01/18 Calcium Carbonate/Vitamin D3 [Calcium 600 + Vit D Tablet] 600 mg PO BID 11/05/18 rosuvastatin 40 mg tablet 40 mg PO DAILY #90 tab 01/16/19 metoprolol succinate ER 25 mg tablet,extended release 24 hr 25 mg PO DAILY #90 tab 01/31/19 Doxil 0 mg IV QMONTH 03/06/19 Lansoprazole 15 mg PO DAILY 03/06/19 Mesalamine 1 g OR BID 03/13/19 Ondansetron HCl [Zofran] 4 mg PO PRN PRN 03/13/19 Ferrous Sulfate 325 mg PO BIDCM #90 tab 03/17/19 Following Prescrptions Were Given to Patient: Ferrous Sulfate 325 mg PO BIDCM #90 tab Transmission Status: Received by [email or web address] Primary Care Physician: Frankie Tyson MD [Primary Care Provider] - Please follow up with your Primary Care Physician in: 1 week. Please Follow Up With: Ming Harrison MD When: as scheduled. Disposition: Home Minutes spent on discharge:: 33 Patient Condition:: Stable Medical Necessity - Tobacco Use Smoking Status: Former smoker Meaningful Use Info Meaningful Use Diagnoses (Choose all that apply): None applicable Code Visit Inpatient E&M: 90169 Disch Hosp
--- NOTE | 2019-03-18 15:00 | CASEMGMT ---
SOFIA GALLO Discharge Follow-Up Phone Call. Lacyoseph:12 Strata: 4 Discharge Date: 03/17/19 Adm Dx: Gross Hematuria, Pelvic Pain, On Xarelto, Hx Ovarian CA Call to pt to inquire about how she has been doing since being discharged from the hospital. She states Not so good. I've got the other problem back now. Pt explained that she is having issues with her bowels now and having non-stop bowel movements. She states she called her GI specialist and spoke with them and states she is awaiting a return call from Dr Dupont. Pt states re: bladder issues/bleeding that she is still having some bleeding but that the doctor had explained that this was to be expected. Pt asked when she should call Ivan's office re: if the bleeding does not stop. Pt instructed if it worsens or does not clear up in 1-2 days, to call Dr Love's office to notify him. Pt voices understanding. Pt denies having any questions about the discharge instructions, medications, or other appts. 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 She states she has an appt with Dr Harrison on 04/01. Mahamed ALMODOVAR RN, CM
== END 2019-03-17 16:47 | disposition home or self-care (01) | DRG 663 ==
LOC: ED 13:09 → PCU 13:52
PROVIDERS: Urology; Admitting Provider Hospitalist; Emergency Provider Emergency Medicine; Referring Provider Hospitalist; Visit Provider Hospitalist
PROC: 0TBB8ZX Excision of Bladder, Via Natural or Artificial Opening Endoscopic, Diagnostic (ICD-10-PCS; principal; 2019-03-16 11:50)
DX: N30.41 Irradiation cystitis with hematuria (principal); C56.9 Malignant neoplasm of unspecified ovary; I50.32 Chronic diastolic (congestive) heart failure; C78.6 Secondary malignant neoplasm of retroperitoneum and peritoneum; D62 Acute posthemorrhagic anemia; K62.7 Radiation proctitis; Y84.2 Radiological procedure and radiotherapy as the cause of abnormal reaction of the patient, or of later complication, without mention of misadventure at the time of the procedure; Z79.01 Long term (current) use of anticoagulants; Z86.718 Personal history of other venous thrombosis and embolism; Z95.3 Presence of xenogenic heart valve; Z87.891 Personal history of nicotine dependence; Z92.3 Personal history of irradiation; Z90.710 Acquired absence of both cervix and uterus; Z90.722 Acquired absence of ovaries, bilateral; Z90.79 Acquired absence of other genital organ(s); E27.9 Disorder of adrenal gland, unspecified
CPT/HCPCS: 36415; 36591; 51702; 80048; 81001; 85014; 85018; 85025; 85610; 85730; 86850; 86870; 86900; 86902; 86905; 86920; 86922; 88305; 97802; 97803; 99285; J7030; J7040; P9016; P9017; P9040; A4216; J2405

== ENCOUNTER 2019-03-27 09:58 | Day surgery (SDC) | payer OTHER, SELFPAY ==
[2019-03-04 10:06] VITALS: BMI 22.3
[2019-03-26 14:18] VITALS: BMI 22.6
[2019-03-27 06:00] VITALS: BMI 21.9
--- NOTE | 2019-03-27 07:24 | PCM.HP.BLA ---
Problem List (1) DVT (deep venous thrombosis) Status: Chronic Qualifiers: DVT location: lower extremity Chronicity: chronic Laterality: unspecified laterality (2) Anemia Status: Chronic Qualifiers: Anemia type: iron deficiency Iron deficiency anemia type: chronic blood loss Qualified Code(s): D50.0 - Iron deficiency anemia secondary to blood loss (chronic) (3) Gross hematuria Status: Acute History and Physical Date of Admission: 03/27/19 OFFICE VISIT Date of Service: 03/27/19 MR#: [id number] Acct: [id number] Name: JEREL ZELAYA Rep #: [id number] : 1965 Provider: Albert Crisostomo MD Age/Sex: 53/F Location: [facility] Status: Signed Intake Vital Signs 03/27/19 Height 5 ft 6 in 03/27/19 Weight: 136 lb 03/27/19 Body Mass Index (BMI) 21.9 03/27/19 Blood Pressure 90/56 L 03/27/19 Blood Pressure Location Rt brachial 03/27/19 Blood Pressure Position Sitting 03/27/19 Respiratory Rate 18 03/27/19 Pulse Rate 100 03/27/19 Pulse Source Monitor 03/27/19 Temperature 98.2 F 03/27/19 Temperature Source Oral 03/27/19 Pulse Ox 98 03/27/19 Oxygen Delivery Method room air Intake Visit Reasons: filter insertion Chief Complaint: Metastatic ovarian cancer on treatment Director Of Accounting Required: No Is patient in pain?: No Allergies sulfamethoxazole [From Bactrim] Allergy (Severe, Verified 03/27/19 07:00) Other trimethoprim [From Bactrim] Allergy (Severe, Verified 03/27/19 07:00) Other ampicillin Adverse Reaction (Severe, Verified 03/27/19 07:00) Rash gentamicin Adverse Reaction (Severe, Verified 03/27/19 07:00) Rash Medications traMADol [Ultram] 50 mg PO DAILY PRN 10/02/17 [History Confirmed 03/27/19] B-complex with vitamin C capsule 1 cap PO DAILY 07/01/18 [History Confirmed 03/27/19] acetaminophen 325 mg tablet 500 mg PO BID PRN tab 07/01/18 [History Confirmed 03/27/19] loratadine 10 mg tablet 10 mg PO PRN PRN tab 07/01/18 [History Confirmed 03/27/19] Calcium Carbonate/Vitamin D3 [Calcium 600 + Vit D Tablet] 600 mg PO BID 11/05/18 [History Confirmed 03/27/19] rosuvastatin 40 mg tablet 40 mg PO DAILY #90 tab 01/16/19 [Rx Confirmed 03/27/19] metoprolol succinate ER 25 mg tablet,extended release 24 hr 25 mg PO DAILY #90 tab 01/31/19 [Rx Confirmed 03/27/19] Doxil 0 mg IV QMONTH 03/06/19 [History Confirmed 03/27/19] Lansoprazole 15 mg PO DAILY 03/06/19 [History Confirmed 03/27/19] Mesalamine 1 g MO BID 03/13/19 [History Confirmed 03/27/19] Ondansetron HCl [Zofran] 4 mg PO PRN PRN 03/13/19 [History Confirmed 03/27/19] Ferrous Sulfate 325 mg PO BIDCM #90 tab 03/17/19 [Rx Confirmed 03/27/19] PFSH Medical History (Updated 03/27/19 @ 05:58 by Albert Crisostomo MD) Premature atrial contractions (Chronic) First degree AV block (Chronic) Rheumatic aortic stenosis with regurgitation (Chronic) Chronic diastolic (congestive) heart failure (Chronic) Rheumatic mitral stenosis with regurgitation (Chronic) Hyperlipidemia (Chronic) Ovarian cancer (Chronic) Peritoneal carcinomatosis (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) Iron deficiency anemia (Chronic) Anemia (Chronic) Normal cystoscopy (Acute) Psoriasis (Acute) Breathing difficulty (Resolved) Rheumatic fever (Resolved) Alvarez-Mu syndrome (Inactive) Surgical History (Updated 03/09/19 @ 09:57 by Jazmyne Dupont MD) H/O aortic valve replacement with tissue graft (Chronic ~04/08/17) History of mitral valve replacement with tissue graft (Chronic ~04/08/17) History of left cataract surgery (Acute) History of right cataract surgery (Acute) s/p Insertion vascular port (Chronic ~09/19/17) H/O hysterectomy with oophorectomy (Resolved) Family History (Updated 09/18/17 @ 10:[address] [place]) Mother Cancer Grandmother Diabetes father mother Grandmother Heart disease mother Social History (Updated 03/27/19 @ 07:22 by Albert Crisostomo MD) Smoking Status: Former smoker how long ago did patient quit smokin years ago alcohol intake: current alcohol intake frequency: holidays/special occasions only substance use type: does not use caffeine: Yes Type: coffee Number of servings: 5 HPI HPI HPI: JEREL ZELAYA, is a 53 F who presents to the office today for surgical consultation regarding radiation proctitis and radiation cystitis with severe hemorrhage and anemia and contraindication to anticoagulation with a previous history of deep vein thrombosis with pulmonary embolus in the face of metastatic ovarian cancer. I was contacted yesterday by Dr. Harrison for placement of a inferior vena cava filter. The patient was restarted on Xarelto and yet had recurrent bleeding. Currently she is not felt to be a candidate for ongoing anticoagulation therapy. Office notes by Dr. Harrison reflect the following. - Problem List (1) Ovarian cancer Status: Chronic (2) Regional lymph node metastasis present Status: Chronic (3) Peritoneal carcinomatosis Status: Chronic (4) Anemia Status: Chronic Qualifiers: Anemia type: unspecified type Qualified Code(s): D64.9 - Anemia, unspecified (5) DVT (deep venous thrombosis) Status: Chronic (6) Nodule of right lung Status: Chronic (7) Pleural effusion, right Status: Chronic (8) Left adrenal mass Status: Chronic (9) Iron deficiency anemia Status: Chronic (10) Chemotherapy induced neutropenia Status: Acute - Date of Service Date of Service:: 03/23/19 - Chief Complaint Metastatic ovarian cancer on treatment - History of Present Illness Patient is a 52-year-old female who presented in July 2017 with abdominal pain and is CT scan showed a pelvic mass. On August 05, 2017 she underwent a total abdominal hysterectomy, bilateral salpingo-oophorectomy, staging and tumor cytoreductive surgery by Dr. Broussard at [facility]. Pathology confirmed high-grade serous carcinoma primary tumor site right ovary with ovarian surface involvement and maximum tumor diameter 8.5 cm. The right fallopian tube was involved with tumor, the left ovary surface was also involved measuring 2 cm, cul-de-sac biopsy showed involvement by carcinoma, uterus and cervix were not involved, right pelvic sidewall biopsy showed involvement by cancer and left pelvic lymph node biopsy showed metastatic cancer, omentum was negative for carcinoma. Laboratory Tests 09/10/17 15:11 CA 125 Antigen 575.2 H September 13, 2017 baseline staging post op revealed bulky (more than 1 cm) residual disease in the abdomen with the largest lymph node mass measuring 5.9 cm. Additionally left adrenal mass, small right pleural effusion, and a sub-centimeters right lung nodule. PET scan to further characterize these additional abnormalities was requested but patient's co-pay was excessive and therefore was canceled. Postop patient suffered from a left lower extremity DVT and was placed on Xarelto. In mid August 2017 she was treated for flu. Family history notable for mother dying of widely spread metastatic cancer primary site not known to the patient. Treatment: - August 05, 2017 TAHBSO, staging and tumor cytoreductive surgery - 2017-March 19, 2018 dose dense Carbo-taxol: MO then progression - June 04-July 30, 2018 Abraxane: Progression - August 13, 2018 Doxil - Palliative radiation 3900 cGy of 15 MV photons in 13 fractions to the large pelvic recurrence with a 3D conformal technique consisting of four field box. The planned treatment was 4500 cGy in 15 fractions but due to other medical problems and likely some treatment related toxicities this treatment was stopped early. Date of First Treatment: 04/23/18 Date of Last Treatment: 05/09/18 HPI HPI HPI: JEREL ZELAYA, is a 53 F who presents to the office today for ROS General General: Yes weight change and fatigue Additional Details: Metastatic ovarian cancer Gastro Gastrointestinal: Yes abdominal pain, No nausea or vomiting, No diarrhea, No constipation, Yes blood in stool, Yes acid reflux, No hemorrhoids, No ulcers, No gallbladder problem, No black,tarry stools Exam Const General: cooperative, no acute distress Nutritional Appearance: average body habitus Orientation: alert, awake, oriented x3 HENAR Head: normal to inspection Chest Other: Left internal jugular and left chest port in place Resp Auscultation: clear to auscultation bilaterally Other: Diminished respiratory excursion Cardio Rate: regular rate Rhythm: regular rhythm Other: Harsh 3/6 systolic ejection murmur GI Other: Slightly distended, nontender, well-healed epigastric chest tube drainage's incisions, well-healed infraumbilical midline incision Neuro Cognition: normal cognition Extrem General: no calf tenderness bilaterally Psych Affect: normal affect Assessment & Plan Problems 1. Chronic deep vein thrombosis (DVT) of lower extremity, unspecified laterality, unspecified vein I82.509 2. Peritoneal carcinomatosis C78.6; C80.1 3. Iron deficiency anemia, unspecified iron deficiency anemia type D50.9 Plan 53-year-old female who has metastatic ovarian cancer and significant complications of gross hematuria and hematochezia with blood loss anemia and is no longer currently felt to be a candidate for anticoagulation therapy for her history deep vein thrombosis and pulmonary embolus. In detail I discussed with her the technique, benefit, risk and alternatives of an inferior venacavogram and tentative inferior vena cava filter placement. I anticipate a right internal jugular approach. We will try to expedite her care and proceed today. She is aware of the technique, benefit, risks, alternatives. She has had an opportunity to ask and have questions answered. We will proceed to facilitate her management. I very much appreciate the kind opportunity of assisting with her surgical care. The patient has a indwelling left internal jugular port. I have discussed the potential need to convert to a femoral approach if required. The patient has been fasting overnight. She stopped her Xarelto 3 days ago. She has had some more mild persistent hematuria. CC: Dr. Ming Harrison and Dr. Frankie Crisostomo M.D., F.A.C.S. Coding Level of Care Code 67649 Diagnoses Chronic deep vein thrombosis (DVT) of lower extremity, unspecified laterality, unspecified vein I82.509 ??DVT location: lower extremity ??Affected thrombotic vein of extremity: unspecified vein of extremity ??Chronicity: chronic ??Laterality: unspecified laterality Peritoneal carcinomatosis C78.6; C80.1 Iron deficiency anemia, unspecified iron deficiency anemia type D50.9 ??Iron deficiency anemia type: unspecified iron deficiency 03/27/19 0723 <Electronically signed by Albert Crisostomo MD> Date Albert Crisostomo MD Cosigner Signature: Date (if applicable) CC: Frankie Tyson MD; Ming Harrison MD ~ I have re-examined the patient. There are no clinical changes since date of exam.
[2019-03-27 08:09] LABS: Hematocrit 30.6 % (37-47); Hemoglobin 9.7 g/dL (12.0-15.0); Mean Corp Hgb Conc 31.7 g/dL (32-36); Mean Corpuscular Hgb 27.7 pg (27.0-32.0); Mean Corpuscular Volume 87.4 fL (81-99); Mean Platelet Vol. 9.7 fl (6.2-12.0); POSITIVE MORPHOLOGY YES; Platelet Count 538 K/mm3 (150-450); RBC Distribution Width CV 20.1 % (11.6-14.6); White Blood Count 10.6 K/mm3 (4.4-11.0)
[2019-03-27 08:11] LABS: Scan Indicated on CBC? Y/N YES- FLAGS NOTED
[2019-03-27 10:16] VITALS: BMI 21.2
--- NOTE | 2019-03-27 13:23 | OP.PCM_ITS ---
Problem List (1) DVT (deep venous thrombosis) Status: Chronic Qualifiers: DVT location: lower extremity Chronicity: chronic Laterality: unspecified laterality (2) Anemia Status: Chronic Qualifiers: Anemia type: iron deficiency Iron deficiency anemia type: chronic blood loss Qualified Code(s): D50.0 - Iron deficiency anemia secondary to blood loss (chronic) (3) Gross hematuria Status: Acute Report of Operation Date of Procedure: 03/27/19 Pre-Operative Diagnosis: Blood loss anemia and history of deep venous thrombosis and pulmonary embolus in need of vena cava filter Post-Operative Diagnosis: Occlusion infrarenal vena cava Surgery/Procedure Performed:: Inferior venacavogram Description of Surgical Findings:: Timeout and informed consent was obtained. 53-year-old female was taken to the Dis[employer]. She was placed supine on the table. She received 50 mcg of fentanyl and 2 mg of Versed. The right neck was sterilely prepped and draped. Ultrasound was used to identify the right internal jugular vein. 2% lidocaine was instilled as a local anesthetic. A total of 5 cc was used. A micropuncture technique under ultrasound guidance was used to gain access to the right internal jugular vein. Micropuncture wire inserted. Micropuncture sheath inserted no 3 5 J-wire was inserted. A 5 Nigerien short sheath guide was inserted. Using an 035 J-wire a 5 Nigerien universal flush catheter was placed into the inferior vena cava. The wire however would not advance past L2. Despite multiple attempts I then tried placing a 4 Enokwp-foaa-rru glide cath and I tried utilizing an 035 angled Glidewire. At this point using both the flush catheter separately and the 4 Nigerien glide cath I obtained a inferior venacavogram using 15 cc second for 15 cc of mildly diluted contrast and 30 cc a second for 15 cc of contrast. She tolerated the procedure well. I discussed with Dr. Harrison the finding of a complete infrarenal occlusion. We completed the procedure did not attempt filter placement the sheath was removed. Pressure was held for hemostasis. Telfa OpSite dressing applied. No apparent complication. Total contrast used was 35 cc. The inferior venacavogram demonstrates patency of the renal veins. There is no flow distal to the veins. There is some evidence particularly to the right of some collateral flow into the vena cava just inferior to the cardiac margin. Albert Crisostomo M.D., F.A.C.S. Type of Anesthesia:: IV Sedation, Local
[2019-03-27 16:05] LABS: Xtra Tube EP Lab EXTRA TUBE
== END 2019-03-27 13:43 | disposition home or self-care (01) ==
PROVIDERS: Referring Provider Surgery; Visit Provider Surgery
DX: I82.509 Chronic embolism and thrombosis of unspecified deep veins of unspecified lower extremity (principal); Z53.09 Procedure and treatment not carried out because of other contraindication; I82.220 Acute embolism and thrombosis of inferior vena cava; Z86.711 Personal history of pulmonary embolism; D50.0 Iron deficiency anemia secondary to blood loss (chronic); C56.1 Malignant neoplasm of right ovary; C56.2 Malignant neoplasm of left ovary; K62.7 Radiation proctitis; D70.1 Agranulocytosis secondary to cancer chemotherapy; C77.5 Secondary and unspecified malignant neoplasm of intrapelvic lymph nodes; C78.6 Secondary malignant neoplasm of retroperitoneum and peritoneum; I50.32 Chronic diastolic (congestive) heart failure; I05.2 Rheumatic mitral stenosis with insufficiency; E27.9 Disorder of adrenal gland, unspecified; R31.0 Gross hematuria; E78.5 Hyperlipidemia, unspecified; Z79.01 Long term (current) use of anticoagulants; Z79.899 Other long term (current) drug therapy; Z88.2 Allergy status to sulfonamides; Z88.1 Allergy status to other antibiotic agents; Z88.0 Allergy status to penicillin; Z87.891 Personal history of nicotine dependence; Z95.2 Presence of prosthetic heart valve
CPT/HCPCS: 36010; 36591; 75825; 76937; 85027; 99152; 99153; A4216; C1769; C1773; C1880; C1894; Q9967

== ENCOUNTER → 2019-04-21 12:57 | Outpatient (CLI) | payer OTHER, SELFPAY ==
[2019-03-04 10:06] VITALS: BMI 22.3
[2019-04-01 09:46] VITALS: BMI 21.9
[2019-04-15 09:20] VITALS: BMI 20.6
--- NOTE | 2019-04-21 12:58 | ECHODONC_ITS ---
Reason For Study: ASSESS EF` Procedure This was a 2D Doppler, Color Flow transthoracic echocardiogram. The exam was of adequate technical quality. Exam performed in department. Left Ventricle Normal LV size. Left ventricular systolic function is normal. The estimated ejection fraction is 60 %. Unable to assess diastolic dysfunction. No regional wall motion abnormalities noted. Right Ventricle Normal RV size. Normal systolic function. Atria The left atrium is mildly enlarged. Normal right atrium. No doppler evidence for ASD. Mitral Valve Stable appearing bioprosthetic mitral valve apparatus. Trivial transvalvular insufficiency of the mitral valve. Tricuspid Valve Normal tricuspid valve. Mild to moderate (1-2+) tricuspid valve insufficiency. Right ventricular systolic pressure estimated to be 37 mmHg. Aortic Valve Stable appearing bioprosthetic aortic valve apparatus. 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 Pulmonic Valve The pulmonic valve is not well visualized. Great Vessels Normal sized aortic root. Pericardium/Pleural No pericardial effusion. MMode/2D Measurements & Calculations LVIDd: 4.4 cm IVSd: 0.96 cm LVOT diam: 1.9 cm LVIDs: 2.9 cm LVPWd: 0.87 cm LVOT area: 2.7 cm2 RVDd: 3.3 cm FS: 33.5 % Ao root diam: 3.2 cm LAV(MOD-bp): 67.1 ml LA A4 area: 22.4 cm2 LAV(MOD-bp) Indexed: 41.0 ml/m2 LAV(MOD-sp2): 69.0 ml LAV(MOD-sp4): 66.3 ml LA dimension(2D): 3.4 cm RA A4 area: 16.3 cm2 Time Measurements MV dec time: 0.31 sec Doppler Measurements & Calculations MV E max barbara: 188.8 cm/sec MV V2 max: 214.7 cm/sec Ao V2 max: 399.1 cm/sec MV A max barbara: 172.2 cm/sec MV max P.4 mmHg Ao max P.7 mmHg MV E/A: 1.1 MV V2 mean: 158.7 cm/sec Ao V2 mean: 314.7 cm/sec MV mean P.7 mmHg Ao mean P.7 mmHg MV V2 VTI: 50.9 cm Ao V2 VTI: 88.5 cm MVA(VTI): 1.5 cm2 TYSON(I,D): 0.84 cm2 TYSON(V,D): 0.85 cm2 LV V1 max: 123.8 cm/sec SV(LVOT): 74.5 ml PA V2 max: 123.4 cm/sec LV V1 max P.1 mmHg LV V1 mean P.7 mmHg LV V1 mean: 92.7 cm/sec LV V1 VTI: 27.3 cm TR max barbara: 290.3 cm/sec MV P1/2t-pr_phl: 109.9 msec TR max P.7 mmHg Interpretation Summary Left ventricular systolic function is normal. The estimated ejection fraction is 60 %. The global longitudinal strain = -17 % (borderline). The left atrium is mildly enlarged. Stable appearing bioprosthetic mitral valve apparatus. Trivial transvalvular insufficiency of the mitral valve. Mild to moderate (1-2+) tricuspid valve insufficiency. Stable appearing bioprosthetic aortic valve apparatus. 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 Unable to assess diastolic dysfunction. Ordering Physician: Ming Harrison Referring Physician: Ming Harrison Performed By: Jodi Campa, RDMARIAH, RVT
--- NOTE | 2019-04-21 13:52 | CT_ITS ---
STUDY: CT ABDOMEN AND PELVIS WITH CONTRAST REASON FOR EXAM: Female, 53 years old. Ovarian cancer. Status post chemotherapy. RADIATION DOSAGE (If Supplied By Facility): CTDIvol = ( 9.62 ) mGy, DLP = ( 693.48 ) mGycm TECHNIQUE: Transaxial images were obtained from the dome of the diaphragm to the symphysis pubis without oral contrast. 100CC ml of Isovue 300 contrast was administered. Sagittal and coronal images were reconstructed. Individualized dose optimization techniques were used for this CT. COMPARISON: 03/02/2019 and 12/25/2018. FINDINGS: The visualized lung bases are clear. The visualized portions of the heart and pericardium are within normal limits. There are no calcified gallstones present. The liver is within normal limits. There are no suspicious hepatic lesions. The spleen is normal in size. The pancreas is within normal limits. There is a stable 2.1 x 2.0 cm indeterminate left adrenal nodule. The right adrenal gland is within normal limits. There are no renal or ureteral stones. There is no hydronephrosis. There are no focal renal lesions. Normal visualized stomach. There is no bowel obstruction or inflammation. The appendix is not visualized, but there are no findings to suggest acute appendicitis. The aorta is normal in caliber. There are stable thrombus in the infrarenal IVC and bilateral common iliac veins. Collateral veins in the abdominal wall. There is diffuse thickening of the urinary bladder wall. The patient is status post hysterectomy. There is an 8.2 x 6.2 x 5.3 cm necrotic mass in the pelvis which is increased in size when compared with the prior exam (previously 5.1 x 5.0 x 4.1 cm) Again noted is necrotic-appearing jordi hepatis, mesenteric and retroperitoneal lymphadenopathy noted which is not significantly changed when compared with the prior exam. The largest node measures approximately 4.2 x 3.0 cm (previously 4.3 x 2.8 cm). There is a small amount of free fluid. There is no free air or fluid collection. There are no destructive osseous lesions. CT/Abdomen/Pelvis W IV Cont ONLY IMPRESSION: 8.2 x 6.2 x 5.3 cm necrotic mass in the pelvis which is increased in size when compared with the prior exam. Stable necrotic abdominal and pelvic lymphadenopathy. Stable indeterminate left adrenal nodule. Stable thrombus in the infrarenal IVC and bilateral common iliac veins. Stable collateral veins in the abdominal wall. Small amount of ascites. Stable diffuse thickening of the urinary bladder wall. Electronically Signed: Felix Ramos, at 14:51 EDT Tel , Service support ,
--- NOTE | 2019-04-21 13:52 | CT_ITS ---
STUDY: CT CHEST WITH CONTRAST REASON FOR EXAM: Female, 53 years old. Ovarian cancer. Status post chemotherapy. RADIATION DOSAGE (If Supplied By Facility): CTDIvol = ( 9.62 ) mGy, DLP = ( 693.48 ) mGycm TECHNIQUE: Transaxial imaging was performed following intravenous administration of 100CC ml of Isovue 300 contrast material. Coronal and sagittal reformatted images were created. Individualized dose optimization techniques were used for this CT. COMPARISON: 03/02/2019 FINDINGS: There is a left-sided port with its tip in the superior vena cava. There are multifocal groundglass opacities noted in both lungs, most pronounced in the upper lobes. This is new when compared with the prior exam and likely represents an infectious or inflammatory etiology. There are no focal infiltrates. There are no pleural effusions. There are no pulmonary nodules or masses. There is no pneumothorax. The patient is status post sternotomy. The heart and pericardium are within normal limits. There are stable borderline mediastinal lymph nodes, measuring up to 1 cm. There is no evidence of thoracic aortic aneurysm. Please see the report for the abdominal CT which was dictated separately. There are no destructive osseous lesions. CT/Chest WITH Contrast IMPRESSION: Multifocal groundglass opacities noted in both lungs, most pronounced in the upper lobes. This is new when compared with the prior exam and likely represents an infectious or inflammatory etiology. No pulmonary nodules or masses. Stable borderline mediastinal lymph nodes, measuring up to 1 cm. Electronically Signed: Felix Ramos, at 17:11 EDT Tel , Service support ,
[2019-04-24 16:13] LABS: Color, Urine Amber (Yellow); Glucose, Dipstick Normal (Normal); Ketone-Dipstick 15 mg/dl (Negative); Leukocyte Esterase-Dipstick 500 /ul (Negative); Nitrite-Dipstick Positive (Negative); Occult Blood-Urine 150 /ul (Negative); Protein-Dipstick 500 mg/dl (Negative); Specific Gravity, Urine 1.015 (1.002-1.030); Urine Clarity Turbid (Clear); Urine Urobilinogen 12 mg/dl (Normal)
[2019-04-24 16:16] LABS: Urine Bilirubin Dipstick 6 mg/dL (Negative)
[2019-04-24 16:24] LABS: Amorphous Sediment 2+; Bacteria 4+ /hpf (None Seen); Mucous, Urine RARE /hpf (<or=2+); Red Blood Cells-Urine 50-100 SEEN /hpf (0-5); Squamous Epithelial Cells - UA 0-5 SEEN /hpf (5-10); White Blood Cells >100 SEEN /hpf (0-5)
[2019-04-24 16:25] LABS: Renal Epithelial Cells 0-5 SEEN /hpf (0-5)
== END ==
PROVIDERS: Referring Provider Internal Medicine Hematology & Oncology; Visit Provider Internal Medicine Hematology & Oncology
DX: C56.9 Malignant neoplasm of unspecified ovary (principal); C77.9 Secondary and unspecified malignant neoplasm of lymph node, unspecified; E27.9 Disorder of adrenal gland, unspecified; R91.1 Solitary pulmonary nodule; Z79.899 Other long term (current) drug therapy
CPT/HCPCS: 0399T; 71260; 74177; 81001; 87077; 87086; 87088; 87186; 93306; Q9967; A4216